=== PATIENT | female | born 1930 | race Caucasian/White ===

== ENCOUNTER 2018-01-24 10:01 | Inpatient (IN) | payer OTHER, MEDICARE ==
[~2018-01-24] VITALS: Ht 157.5 cm; Wt 80.3 kg
--- NOTE | 2018-01-24 10:10 | ED GENERAL ADULT ---
History of Present Illness General Chief Complaint: Altered Mental Status Stated Complaint: BIBA, AMS Source: patient, family Exam Limitations: patient's age, poor historian Vital Signs & Intake/Output Vital Signs & Intake/Output Vital Signs Date Time Temp Pulse Resp B/P B/P Pulse O2 O2 Flow FiO2 Mean Ox Delivery Rate 01/24 1629 96 Nasal 2.0L Cannula 01/24 1629 78 18 92/54 96 Nasal 2.0L Cannula 01/24 1550 97.0 86 18 110/60 96 Room Air Room Air 01/24 1042 97 Non 10L ReBreather 01/24 1006 100.0 99 17 105/73 96 Non 10L ReBreather Allergies Coded Allergies: Penicillins (UNKNOWN 01/24/18) Sulfa (Sulfonamide Antibiotics) (UNKNOWN 01/24/18) amoxicillin (From AUGMENTIN) (UNKNOWN 01/24/18) ciprofloxacin (From CIPRO) (UNKNOWN 01/24/18) clavulanic acid (From AUGMENTIN) (UNKNOWN 01/24/18) hydromorphone (From DILAUDID) (UNKNOWN 01/24/18) nitrofurantoin (From MACROBID) (UNKNOWN 01/24/18) Uncoded Allergies: ANESTHIA (UNKNOWN 01/24/18) Reconcile Medications Acetaminophen (Tylenol Arthritis) 650 MG TABLET.ER 1 TAB PO DAILY HIP PAIN ( Reported) Ascorbate Calcium (Vitamin C) 500 MG TABLET 1 TAB PO BID VITAMIN SUPPORT ( Reported) Aspirin (Aspirin*) 81 MG TAB.CHEW 1 TAB PO DAILY HEART HEALTH (Reported) Duloxetine HCl 60 MG CAPSULE.DR 1 CAP PO DAILY DEPRESSION (Reported) Estradiol (Estring) 7.5 MCG/24 HOUR VAG.RING 1 RING VAG Q3M PAV (Reported) Furosemide 40 MG TABLET 1 TAB PO DAILY WATER RETENTION (Reported) Gabapentin (Neurontin) 800 MG TABLET 1 TAB PO TID DIABETES (Reported) Insulin Aspart (Novolog) (Unknown Strength) VIAL (Unknown Dose) SC SEE SLIDING SCALE DIABETES (Reported) Insulin Detemir (Levemir) 100 UNIT/ML VIAL 70 UNIT SC DAILY DIABETES ( Reported) Insulin Detemir (Levemir) 100 UNIT/ML VIAL 45 UNITS SC QPM DIABETES (Reported ) Linagliptin (Tradjenta) 5 MG TABLET 1 TAB PO DAILY DIABETES (Reported) Lorazepam (Ativan) 0.5 MG TABLET 0.5 TAB PO Q8P PRN ANXIETY (Reported) Meclizine HCl 25 MG TABLET 1 TAB PO TIDPRN PRN DIZZINESS (Reported) Melatonin 3 MG TABLET 2 TAB PO QPM SLEEP HELP (Reported) Meloxicam 15 MG TABLET 1 TAB PO DAILY ARTHRITIS (Reported) Methenamine Hippurate 1 GRAM TABLET 1 TAB PO BID URINE (Reported) Metoclopramide HCl 5 MG TABLET 1 TAB PO BIDP PRN GI (Reported) Metoclopramide HCl (Reglan) 5 MG TABLET 1 TAB PO BID GI (Reported) Metoprolol Succinate 100 MG TAB.ER.24H 1 TAB PO DAILY HEART (Reported) Mirabegron (Myrbetriq) 25 MG TAB.ER.24H 1 TAB PO DAILY URINE (Reported) Mirtazapine 45 MG TABLET 1 TAB PO QPM SLEEP (Reported) Omeprazole 20 MG CAPSULE.DR 1 CAP PO BID GI (Reported) Oxybutynin Chloride (Oxybutynin Chloride ER) 10 MG TAB.ER.24 1 TAB PO DAILY BLADDER (Reported) Polyethylene Glycol 3350 (Miralax) 17 GRAM POWD.PACK 1 PAC PO DAILY GI ( Reported) dissolve in water Sennosides (Senna) 8.6 MG TABLET 2 TAB PO QPM GI (Reported) Simvastatin (Simvastatin*) 10 MG TABLET 1 TAB PO QPM CHOLESTEROL (Reported) Tramadol HCl 50 MG TABLET 0.5 TAB PO BID HIP PAIN (Reported) Trazodone HCl 150 MG TABLET 0.5 TAB PO QPM DEPRESSION (Reported) Triage Nurses Notes Reviewed? yes Onset: Abrupt Duration: day(s): Timing: recent history HPI: 01/24/18 87-year-old female presented to the emergency department for altered mental status and lethargy. According to retirement staff she has a history of UTIs presenting as altered mental status. No chest pain or shortness of breath. She also has history of diabetes mellitus. She was found to be hypoglycemic prior to arrival. Past History Travel History Traveled to [place] past 21 day No Medical History Any Pertinent Medical History? see below for history Renal: UTI Endocrine: diabetes Surgical History Surgical History: non-contributory Family History Hx Contributory? No Review of Systems Review of Systems Constitutional: Denies: fever. EENTM: Reports: no symptoms. Respiratory: Reports: no symptoms. Cardiovascular: Reports: no symptoms. GI: Reports: no symptoms. Genitourinary: Reports: see HPI. Musculoskeletal: Reports: no symptoms. Skin: Reports: no symptoms. Neurological/Psychological: Reports: confusion, weakness. Hematologic/Endocrine: Denies: bruising, bleeding. Physical Exam Physical Exam General Appearance: anxious, moderate distress Head: atraumatic, normal appearance Eyes: Bilateral: normal appearance, PERRL, EOMI. Ears, Nose, Throat: normal pharynx, normal ENT inspection Neck: normal inspection, supple Respiratory: normal breath sounds, chest non-tender, no respiratory distress Cardiovascular: tachycardic Peripheral Pulses: 4+ radial (R), 4+ radial (L) Gastrointestinal: non-tender Back: decreased range of motion Extremities: normal inspection Neurologic/Psych: awake, lethargic, nonfocal Skin: diaphoresis Core Measures ACS in differential dx? No CVA/TIA Diagnosis: No Sepsis Present: No Sepsis Focused Exam Completed? No Progress Differential Diagnoses I considered the following diagnoses in my evaluation of the patient: Plan of Care: Orders Procedure Date/time Status CBC WITHOUT DIFFERENTIAL 01/25 0600 Active BASIC ELECTROLYTES PLUS BUN&CR 01/25 0600 Active Consistent Carbohydrate 2 01/24 D Active Patient Data 01/24 1644 Active Weight 01/24 1638 Active Vital Signs 01/24 1638 Active Teach/Educate 01/24 1638 Active Pain Treatment and Response 01/24 1638 Active Nutritional Intake, Monitor 01/24 1638 Active Isolation 01/24 1638 Active Intake & Output 01/24 1638 Active Patient Care Conference 01/24 1638 Active Activity/Ambulation 01/24 1638 Active Pathway - chart 01/24 1506 Active House Staff 01/24 1506 Active Patient Data 01/24 1506 Active ED Holding Orders 01/24 1331 Active Admit to inpatient 01/24 1331 Active Vital Signs 01/24 1331 Active Code Status 01/24 1331 Active LACTIC ACID 01/24 1325 Complete Intake & Output 01/24 1112 Active Fu, Insertion/Removal/Asses 01/24 1025 Active CULTURE,URINE 01/24 1025 Active BLOOD CULTURE 01/24 1025 Active URINALYSIS 01/24 1025 Complete TROPONIN LEVEL 01/24 1025 Complete LACTIC ACID 01/24 1025 Complete COMPREHENSIVE METABOLIC PANEL 01/24 1025 Complete CBC WITHOUT DIFFERENTIAL 01/24 1025 Complete FingerStick- Glucose 01/24 1020 Active EKG 01/24 1016 Active D-DIMER 05/03 1015 Complete Lab Add-on Test 01/24 UNK Active VTE Mechanical Prophylaxis 01/24 UNK Active Current Medications Sig/Shikha Start time Last Medication Dose Stop Time Status Admin Aspirin 81 MG DAILY 01/25 900 AC (Aspirin) Duloxetine HCl 60 MG DAILY 01/25 900 AC (Cymbalta) Enoxaparin Sodium 40 MG DAILY 01/25 900 AC (Lovenox) Furosemide 40 MG DAILY 01/25 900 AC (Lasix) Insulin Detemir 35 UNITS DAILY 01/25 900 AC (Levemir) Gabapentin 800 MG TID 01/24 2100 AC (Neurontin) Insulin Detemir 20 UNITS QPM 01/24 2100 AC (Levemir) Melatonin 6 MG QPM 01/24 2100 AC (Melatonin) Metoclopramide HCl 5 MG BID 01/24 2100 AC (Reglan) Atorvastatin Calcium 5 MG 1700 01/24 1700 AC 01/24 (Lipitor) 1826 Lorazepam 0.25 MG Q8P PRN 01/24 1600 AC (Ativan) 01/31 1559 Meropenem 1 GM Q12H 01/24 1600 AC 01/24 (MEROPENEM) 1555 Acetaminophen 650 MG Q6P PRN 01/24 1515 AC (Tylenol) Acetaminophen 1,000 MG Q6P PRN 01/24 1515 AC (Ofirmev) Sodium Chloride 1,000 ML Q10H 01/24 1515 AC 01/24 (Normal Saline 0.9%) 1730 Laboratory Tests 01/24/18 1336: Lactic Acid 1.0 01/24/18 1027: Urinalysis LIGHT H, Urine Color YEL, Urine Clarity CLDY H, Urine pH 6.0, Ur Specific Blair 1.020, Urine Protein 100 H, Urine Ketones NEG, Urine Nitrite NEG, Urine Bilirubin NEG, Urine Urobilinogen 0.2, Ur Leukocyte Esterase LARGE H , Ur Microscopic SEDIMENT EXAMINED, Urine RBC FEW H, Urine WBC PACKD H, Ur Epithelial Cells FEW, Urine Bacteria RARE H, Urine Hemoglobin MOD H, Urine Glucose NEG 01/24/18 1015: Anion Gap 10, Estimated GFR 52 L, BUN/Creatinine Ratio 36.0 H, Glucose 164 H, Lactic Acid 1.9, Calcium 8.5, Total Bilirubin 0.3, AST 25, ALT 26, Alkaline Phosphatase 108, Troponin I < 0.01, Total Protein 6.1 L, Albumin 3.2 L, Globulin 2.9, Albumin/Globulin Ratio 1.1, D-Dimer High Sensitivty 644 H, CBC w Diff NO MAN DIFF REQ, RBC 4.18 L, MCV 76.0 L, MCH 24.3 L, MCHC 31.9 L, RDW 24.5 H, MPV 9.2, Gran % 80.8 H, Lymphocytes % 9.6 L, Monocytes % 9.0, Eosinophils % 0.3, Basophils % 0.3, Absolute Granulocytes 8.7 H, Absolute Lymphocytes 1.0 L, Absolute Monocytes 1.0 H, Absolute Eosinophils 0, Absolute Basophils 0 Microbiology 01/24 1103 BLOOD: Blood Culture - RECD 01/24 1036 BLOOD: Blood Culture - RES 01/24 1027 URINE ROUT: Urine Culture - RECD Initial ED EKG: normal axis (EKG), nonspecific ST T wave chg, sinus tachycardia Departure Departure Disposition: STILL A PATIENT Condition: Stable Clinical Impression Primary Impression: UTI (urinary tract infection) Secondary Impressions: Altered mental status Referrals: Fara Sears MD (PCP/Family) Departure Forms: Customer Survey General Discharge Information Admission Note Spoke With: Kael HAMPTON,Frieda Documentation of Exam: Documentation of any treatments & extenuating circumstances including Concerns Regarding Discharge (functional status, medication knowledge or non-compliance, living conditions, etc.) that warrant an admission rather than observation: [The patient needs admission for IV antibiotics, IV fluids, neurology evaluations every 6 hours, follow the blood cultures, consider infectious disease consultation] The patient had a history of penicillin allergy. The allergy was a rash. She was treated with meropenem. 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 Critical Care Note Critical Care Note Critical Care Time: 30-74 min
[2018-01-24] MEDS ORDERED: ATIVAN0.5 M1 PO (10:35)
[2018-01-24] MEDS ORDERED: LEVEMIR100 UNIT/1 SC ×2 (10:36→10:42)
[2018-01-24] MEDS ORDERED: METOCLOPRAMIDE H5 MG PO (10:36)
[2018-01-24] MEDS ORDERED: MELOXICAM15 M1 PO (10:43)
[2018-01-24] MEDS ORDERED: TYLENOL ARTHRI650 M1 PO (10:43)
[2018-01-24 10:45] LABS: ABSOLUTE BASOPHIL COUNT 0 /CUMM (0.0-0.2); ABSOLUTE EOSINOPHIL COUNT 0 /CUMM (0.0-0.7); ABSOLUTE GRANULOCYTE CT 8.7 /CUMM (1.4-6.5); BASOPHIL % 0.3 % (0.0-2.0); EOSINOPHIL % 0.3 % (0-5); GRANULOCYTE % 80.8 % (42.2-75.2); HEMATOCRIT 31.8 % (37-47); MEAN CORPUSCULAR HGB 24.3 PG (27.0-31.0); MEAN CORPUSCULAR HGB CONC 31.9 G/DL (33.0-37.0); MEAN PLATELET VOLUME 9.2 FL (7.4-10.4); PLATELET COUNT 189 /CUMM (130-400); RBC DISTRIBUTION WIDTH 24.5 % (11.5-14.5); RED BLOOD CELL CT 4.18 /CUMM (4.20-5.40); WHITE BLOOD CELL COUNT 10.8 /CUMM (4.8-10.8)
[2018-01-24] MEDS ORDERED: TRAMADOL HCL50 M1 PO (10:45)
[2018-01-24] MEDS ORDERED: REGLAN5 M1 PO (10:46)
[2018-01-24] MEDS ORDERED: ESTRING1 EACH VAG (10:48)
[2018-01-24] MEDS ORDERED: OMEPRAZOLE20 M2 PO (10:49)
[2018-01-24] MEDS ORDERED: TRAZODONE HCL150 M1 PO (10:50)
[2018-01-24] MEDS ORDERED: MECLIZINE HCL25 MG PO (10:50)
[2018-01-24] MEDS ORDERED: OXYBUTYNIN CHLO10 M1 PO (10:51)
[2018-01-24] MEDS ORDERED: METHENAMINE HIPP1 G1 PO (10:52)
[2018-01-24] MEDS ORDERED: VITAMIN C500 M6 PO (10:53)
[2018-01-24] MEDS ORDERED: MIRTAZAPINE45 M1 PO (10:54)
[2018-01-24] MEDS ORDERED: SENNA8.6 M3 PO (10:54)
[2018-01-24] MEDS ORDERED: MELATONIN3 M4 PO (10:55)
[2018-01-24] MEDS ORDERED: NOVOLOG100 UNIT/2 SC (10:56)
[2018-01-24] MEDS ORDERED: MIRALAX17 G1 PO (10:56)
[2018-01-24] MEDS ORDERED: DULOXETINE HCL60 MG PO (10:57)
[2018-01-24] MEDS ORDERED: SIMVASTATIN10 M1 PO (10:57)
[2018-01-24] MEDS ORDERED: TRADJENTA5 M1 PO (10:58)
[2018-01-24] MEDS ORDERED: ASPIRIN81 M4 PO (10:58)
[2018-01-24] MEDS ORDERED: NEURONTIN800 M2 PO (10:59)
[2018-01-24] MEDS ORDERED: MYRBETRIQ25 M1 PO (10:59)
[2018-01-24] MEDS ORDERED: METOPROLOL SUC100 M2 PO (10:59)
[2018-01-24] MEDS ORDERED: FUROSEMIDE40 M1 PO (11:00)
--- NOTE | 2018-01-24 11:38 | RADIOLOGY REPORT ---
EXAMINATION: XR PORTABLE CHEST CLINICAL INFORMATION: Fever with question of pneumonia. COMPARISON: None TECHNIQUE: Portable frontal view of the chest was obtained. FINDINGS: The heart and pulmonary vessels appear normal. No infiltrates, effusions or lung masses are seen. IMPRESSION: No acute intrathoracic disease.
--- NOTE | 2018-01-24 12:28 | CT SCAN REPORT ---
EXAMINATION: CT HEAD WITHOUT CONTRAST CLINICAL INFORMATION: Altered mental status. Assess for CVA. COMPARISON: CT scan of the head 06/27/2012. TECHNIQUE: Contiguous axial imaging was performed from the skull base to vertex without intravenous administration of contrast. DLP: 613.14 mGy-cm FINDINGS: There is no evidence of acute intracranial hemorrhage or territorial infarction. No abnormal mass effect or midline shift is seen. Arvizu to white matter differentiation is well preserved. No extra-axial fluid collections are identified. The ventricles and sulci are commensurately prominent consistent with mildly progressive diffuse volume loss. There is also been slight interval increase in the patchy areas of low-attenuation the periventricular and subcortical white matter, consistent with chronic microvascular any changes. There are atheromatous calcifications of the cavernous internal carotid arteries bilaterally. A calcification in the region of the left proximal middle cerebral artery is unchanged. The soft tissues are unremarkable. There is hyperostosis frontalis interna. There are no acute osseous findings. The visualized mastoid air cells and paranasal sinuses are well-aerated. IMPRESSION: 1. There are no acute bleeds or territorial infarcts. 2. There are progressive changes from diffuse volume loss and chronic microvascular ischemic disease.
--- NOTE | 2018-01-24 14:08 | History & Physical ---
Mayra Messina MD,[facility] 01/24/18 1407: General Information and HPI MD Statement: I have seen and personally examined RAMONITA HARP and documented this H&P. The patient is a 87 year old F who presented with a patient stated chief complaint of [altered of the status]. 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 We contacted the nursing facility and family were also present at the bedside to complete the history. this morning patient was found to be minimally responsive and confused, ambulance was called and patient was transferred to ED. Patient has extensive past medical history with several admissions to [facility]. Patient also had several UTIs in the past, the most recent one was in November with candidia and Escherichia coli (treated with fluconazole and? Doxey) and and as it episode of UTI in October with ESBL (treated with gentamicin). Patient had altered mental status in the a.m. but was improved at the time of interview. Patient was found to be hypoglycemic (glucose 36), according to family she got her insulin today but she had no meals. Allergies/Medications Allergies: Coded Allergies: Penicillins (UNKNOWN 01/24/18) Sulfa (Sulfonamide Antibiotics) (UNKNOWN 01/24/18) amoxicillin (From AUGMENTIN) (UNKNOWN 01/24/18) ciprofloxacin (From CIPRO) (UNKNOWN 01/24/18) clavulanic acid (From AUGMENTIN) (UNKNOWN 01/24/18) hydromorphone (From DILAUDID) (UNKNOWN 01/24/18) nitrofurantoin (From MACROBID) (UNKNOWN 01/24/18) Uncoded Allergies: ANESTHIA (UNKNOWN 01/24/18) Home Med list Acetaminophen (Tylenol Arthritis) 650 MG TABLET.ER 1 TAB PO DAILY HIP PAIN ( Reported) Ascorbate Calcium (Vitamin C) 500 MG TABLET 1 TAB PO BID VITAMIN SUPPORT ( Reported) Aspirin (Aspirin*) 81 MG TAB.CHEW 1 TAB PO DAILY HEART HEALTH (Reported) Duloxetine HCl 60 MG CAPSULE. 1 CAP PO DAILY DEPRESSION (Reported) Estradiol (Estring) 7.5 MCG/24 HOUR VAG.RING 1 RING VAG Q3M PAV (Reported) Furosemide 40 MG TABLET 1 TAB PO DAILY WATER RETENTION (Reported) Gabapentin (Neurontin) 800 MG TABLET 1 TAB PO TID DIABETES (Reported) Insulin Aspart (Novolog) (Unknown Strength) VIAL (Unknown Dose) SC SEE SLIDING SCALE DIABETES (Reported) Insulin Detemir (Levemir) 100 UNIT/ML VIAL 70 UNIT SC DAILY DIABETES ( Reported) Insulin Detemir (Levemir) 100 UNIT/ML VIAL 45 UNITS SC QPM DIABETES (Reported ) Linagliptin (Tradjenta) 5 MG TABLET 1 TAB PO DAILY DIABETES (Reported) Lorazepam (Ativan) 0.5 MG TABLET 0.5 TAB PO Q8P PRN ANXIETY (Reported) Meclizine HCl 25 MG TABLET 1 TAB PO TIDPRN PRN DIZZINESS (Reported) Melatonin 3 MG TABLET 2 TAB PO QPM SLEEP HELP (Reported) Meloxicam 15 MG TABLET 1 TAB PO DAILY ARTHRITIS (Reported) Methenamine Hippurate 1 GRAM TABLET 1 TAB PO BID URINE (Reported) Metoclopramide HCl 5 MG TABLET 1 TAB PO BIDP PRN GI (Reported) Metoclopramide HCl (Reglan) 5 MG TABLET 1 TAB PO BID GI (Reported) Metoprolol Succinate 100 MG TAB.ER.24H 1 TAB PO DAILY HEART (Reported) Mirabegron (Myrbetriq) 25 MG TAB.ER.24H 1 TAB PO DAILY URINE (Reported) Mirtazapine 45 MG TABLET 1 TAB PO QPM SLEEP (Reported) Omeprazole 20 MG CAPSULE.DR 1 CAP PO BID GI (Reported) Oxybutynin Chloride (Oxybutynin Chloride ER) 10 MG TAB.ER.24 1 TAB PO DAILY BLADDER (Reported) Polyethylene Glycol 3350 (Miralax) 17 GRAM POWD.PACK 1 PAC PO DAILY GI ( Reported) dissolve in water Sennosides (Senna) 8.6 MG TABLET 2 TAB PO QPM GI (Reported) Simvastatin (Simvastatin*) 10 MG TABLET 1 TAB PO QPM CHOLESTEROL (Reported) Tramadol HCl 50 MG TABLET 0.5 TAB PO BID HIP PAIN (Reported) Trazodone HCl 150 MG TABLET 0.5 TAB PO QPM DEPRESSION (Reported) Past History Travel History Traveled to [place] past 21 day No Medical History Neurological: DIABETIC NEUROPATHY EENT: DYSPHAGIA Cardiovascular: hypertension, hyperlipidemia, PVD, GENERALIZED EDEMA Respiratory: NONE Gastrointestinal: constipation, GERD, irritable bowel syndrome Hepatic: NONE Renal: UTI'S INCONTINENCE Musculoskeletal: rheumatoid arthritis, PSORIASIS,MUSCLE WEAKNESS Psychiatric: anxiety, depression, insomnia Endocrine: diabetes Blood Disorders: IRON DEFICIENCY ANEMIA VIT D DEFICIENCY Surgical History Surgical History: unobtainable (requested for records), masectomy Past Family/Social History Psychosocial History ETOH Use: denies use Illicit Drug Use: denies illicit drug use Review of Systems Review of Systems Constitutional: Reports: see HPI. Exam & Diagnostic Data Last 24 Hrs of Vital Signs/I&O Vital Signs Date Time Temp Pulse Resp B/P B/P Pulse O2 O2 Flow FiO2 Mean Ox Delivery Rate 01/24 1550 97.0 86 18 110/60 96 Room Air Room Air 01/24 1042 97 Non 10L ReBreather 01/24 1006 100.0 99 17 105/73 96 Non 10L ReBreather Intake & Output 01/24 1600 01/24 0800 01/24 0000 Intake Total 1250 Output Total Balance 1250 Intake, IV 1250 Patient 162 lb Weight Weight Reported by Patient Measurement Method Physical Exam General Appearance Alert, Oriented X3, Cooperative, No Acute Distress, ill looking Skin Temp/Moisture Exam: Warm/Dry Sepsis Skin Exam (color): Normal for Ethnicity, no signs at the time of interview HEENT Atraumatic, EOMI Neck No JVD Cardiovascular Normal S1, Normal S2 Lungs Normal Air Movement Abdomen Soft, mild suprapubic tenderness Extremities No Edema Last 24 Hrs of Labs/Mateo: Laboratory Tests 01/24/18 1336: Lactic Acid 1.0 01/24/18 1027: Urinalysis LIGHT H, Urine Color YEL, Urine Clarity CLDY H, Urine pH 6.0, Ur Specific [place] 1.020, Urine Protein 100 H, Urine Ketones NEG, Urine Nitrite NEG, Urine Bilirubin NEG, Urine Urobilinogen 0.2, Ur Leukocyte Esterase LARGE H , Ur Microscopic SEDIMENT EXAMINED, Urine RBC FEW H, Urine WBC PACKD H, Ur Epithelial Cells FEW, Urine Bacteria RARE H, Urine Hemoglobin MOD H, Urine Glucose NEG 01/24/18 1015: Anion Gap 10, Estimated GFR 52 L, BUN/Creatinine Ratio 36.0 H, Glucose 164 H, Lactic Acid 1.9, Calcium 8.5, Total Bilirubin 0.3, AST 25, ALT 26, Alkaline Phosphatase 108, Troponin I < 0.01, Total Protein 6.1 L, Albumin 3.2 L, Globulin 2.9, Albumin/Globulin Ratio 1.1, CBC w Diff NO MAN DIFF REQ, RBC 4.18 L, MCV 76.0 L, MCH 24.3 L, MCHC 31.9 L, RDW 24.5 H, MPV 9.2, Gran % 80.8 H, Lymphocytes % 9.6 L, Monocytes % 9.0, Eosinophils % 0.3, Basophils % 0.3, Absolute Granulocytes 8.7 H, Absolute Lymphocytes 1.0 L, Absolute Monocytes 1.0 H, Absolute Eosinophils 0, Absolute Basophils 0 Microbiology 01/24 1103 BLOOD: Blood Culture - RECD 01/24 1036 BLOOD: Blood Culture - RES 01/24 1027 URINE ROUT: Urine Culture - RECD Assessment/Plan Assessment: Patient is 87 y F with presented to ED with altered mental status and chills PMHx of intersitial cystitis, Type II DM, with diabetic mononeuropathy, HTN, Peripherial vascular disease, generalized anxiety disorder, gerneralized edema, hyperlipidemia, iron deficiency anemia, urge incontinence, IBS with diarrhea, major depressive disorder, anxiety disorder, 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 Doxey) and ESBL (treated with gentamicin) VS, Ph Ex at admission: Tmax 100, BP 105/73, saturating with 2l o2 supplement Labs at admission: Hgb 10.1, MCV 76, WBC 10.8, Gran 80%, creatinine 1, BUN 36, UA, cloudy, leukocyte esterase large, RBC few, WBC packed, bacteria rare Imagings at admission: CXR: No acute intrathoracic disease. Head CT: 1. There are no acute bleeds or territorial infarcts. 2. There are progressive changes from diffuse volume loss and chronic microvascular ischemic disease. Patient was admitted to telemetry floor for management of following conditions: Altered mental status Secondary to UTI (concern of SIRS and Sepsis)/ metabolic due to hypo-glycemia Patient's mental condition improved according to family. -Admit patient to general medicine floor -Continue to check vital signs, neurochecks -O2 supplements as needed -Continue IV hydration -Continue IV meropenem considering ESBL -Monitor blood sugars, reduce the dose of basal insulin to half -hold BP medication, we will monitor BP Chronic medical conditions -We will continue home medication DVT prophylaxis, mechanical and pharmacological Diabetic diet FC As Ranked By This Provider Problem List: 1. UTI (urinary tract infection) 2. Altered mental status 3. Sepsis Core Measures/Misc (06/10) Acute Coronary Syndrome ACS Diagnosis: No Congestive Heart Failure Congestive Heart Failure Diagnosis No Cerebrovascular Accident CVA/TIA Diagnosis: No VTE (View Protocol) VTE Risk Factors Age>40 No Mechanical VTE Prophylaxis d/t N/A MechProphylax Ordered No VTE Pharm Prophylaxis d/t NA PharmProphylax ordered Sepsis (View protocol) Sepsis Present: No Valery Jacobson MD 01/24/18 1521: Attending MD Review Statement Attending Statement Attending MD Statement: examined this patient, discuss w/resident/PA/SENIOR MEDICAL TRANSCRIPTIONIST, agreed w/resident/PA/SENIOR MEDICAL TRANSCRIPTIONIST, discussed with family, reviewed EMR data (avail), discussed with nursing, amended to note Attending Assessment/Plan: Patient is an 87-year-old female with history of insulin-dependent diabetes mellitus, interstitial cystitis, recurrent urinary tract infections. She is a long-term resident of the intermediate facility was sent to the emergency room for evaluation today. She frequently develops urinary tract infections that are being managed at the intermediate facility at times with intravenous antibiotic therapy. Please initially admitted to [facility]. In the past she has grown ESBL E. coli. At the intermediate today she was noted to be febrile. She also had poor appetite. She received her morning dose of insulin and admits to poor oral intake. She was found later with altered mentation. He was hypoglycemic with glucose in the 30s. She was brought by EMS to the ER for evaluation. She was given glucagon by the EMS. Mentation improved by the time she arrived emergency room. She had a temperature 100.0. She was tachycardic. Daughter reports that at the intermediate patient was hypoxic with saturations in the 80s. She was found to have abnormal urinalysis and was started on IV meropenem and was referred to the inpatient medical service for further management. Examination she is alert and oriented 3. Conversant appropriately. No events present at the bedside. She is not in any respiratory distress. Denies any respiratory symptoms at present. Heart sounds are regular. Lungs are clear to auscultation bilaterally. Abdomen soft mild suprapubic tenderness. No rebound or guarding. No peripheral edema. Problems: 1. Complicated urinary tract infection with concern for sepsis on account of her fever, tachycardia and borderline blood pressure. 2. Hypoglycemia 3. Prerenal azotemia 4. Chronic anemia Plan: -Admit to inpatient medical service. -Continue antibiotic therapy with IV meropenem. -Obtain ID consultation. Obtain records from [facility]. -Follow blood and urine cultures. -Resume home insulin regimen and have the dose. Sliding scale insulin coverage. Once appetite improves increase her insulin regimen back to the home dose. -Wean off oxygen as tolerated. Check d-dimer. -DVT prophylaxis with heparin subcu. Juliana Madsen 01/24/18 1535: Resident Review Statement Resident Statement: examined this patient, discussed with restaurant management internship, agreed with restaurant management internship Other Findings: Patient is 87-year-old female with past medical history significant for recurrent urinary tract infections(ESBL in the past), chronic interstitial cystitis, insulin-dependent diabetes mellitus, negative with neuropathy, hypertension and hyperlipidemia, GERD, hiatal hernia, presented from [facility] further evaluation of altered mental status. Pt has been in the facility for more than 5-6 years, has been treated multiple times with IV and oral for recurrent urinary tract infections. Last infection was in November /December when she was treated with doxycycline and fluconazole. For the last 1 week patient patient started feeling as if she was having another urinary tract infection. Had dysuria with bladder pressure and she was put on pyridium. At the intermediate today patient was found to be febrile to 101, she was minimally responsive, blood sugars were low in the 30s, desaturated and 80s and was sent to the ER for further evaluation.On her way to the hospital patient was given glucagon. In the ER patient he was still lethargi,tachycardic and febrile to 100. Urinalysis was positive for large leukocyte esterase. She was started on broad- spectrum IV meropenem(in the context of previous ESBL infections) Vitals in the ED Stable except for borderline low blood pressure General Appearance: Alert, No Acute Distress Skin: Grossly normal HEENT: PEERLA Neck: Supple, No JVD Cardiovascular: Regular Rate, Normal S1, Normal S2, No Murmurs Lungs: Clear to Auscultation, Normal Air Movement Abdomen: Normal Bowel Sounds, Soft, No Tenderness Neurological: Grossly intact Extremities: No Clubbing, No Cyanosis, No Edema Vascular: Normal Pulses Pertinent labs on admission WBC count with evidence of gross granulocytosis, normal lactic acid levels Normal chest x-ray and CT head EKG showing sinus tachycardia with incomplete right bundle branch block Assessment Altered mental status(metabolic encephalopathy in the setting of severe complicated urinary tract infection)- with a concern of sepsis, history of ESBL Hypoglycemia History of interstitial cystitis History of hypertension and hyperlipidemia plan: Altered mental status(metabolic encephalopathy in the setting of severe complicated urinary tract infection) with a concern of sepsis, history of ESBL * Admit the patient to general floor * Continue with with IV meropenem * Awaiting cultures and sensitivities. * Continue with IV hydration * Monitor vitals every 4 hours * Watch for any hemodynamic instability. Hypoglycemia: * Monitor blood sugar levels. * Will continue down basal Levemir to half (20 of Levemir at bedtime and 35 of Levemir in the morning). * Hold oral hypoglycemics. History of interstitial cystitis * Continue mirbegon. History of hypertension and hyperlipidemia * Hold antihypertensives for now due to concerns of underlying sepsis * Consider resuming the medications tomorrow once the blood pressure is stable DVT prophylaxis with subcutaneous Lovenox Mild pain controlled with Tylenol Patient is full code
[2018-01-24 16:29] VITALS: BP 92/54
--- NOTE | 2018-01-24 17:39 | Cons- Infect Disease ---
General Information and HPI Consulting Request Date of Consult: 01/24/18 Requested By: Valery Jacobson MD Reason for Consult: Rule out sepsis of urologic origin Source of Information: patient, family History of Present Illness: This is an 87-year-old woman, alf resident, with a history of diabetes, with a secondary neuropathy, hypertension, peripheral vascular disease, iron deficiency anemia, rheumatoid arthritis, irritable bowel syndrome, depression, anxiety, GERD, psoriasis, interstitial cystitis, treated for multiple urinary tract infections in the past, with ESBL producing E. coli and Kelsy isolated from her recent urine cultures, admitted today after she was sent to the emergency room because of a fever to 101, hypoglycemia (with a glucose of 34 en route to the hospital) and confusion, several days of lethargy and more chronic complaints of suprapubic pressure and dysuria. On admission she was febrile to 100, with a blood pressure of 105/73. Laboratory data revealed a white blood cell count of 11,000, BUN/creatinine 36 and 1.0, with normal liver enzymes. Urinalysis few RBC/packed WBCs. Chest x-ray was negative. CT of the head revealed progressive changes from diffuse volume loss and chronic microvascular ischemic disease. She was begun on Meropenem and admitted to the floor. Allergies/Medications Allergies: Coded Allergies: Penicillins (UNKNOWN 01/24/18) Sulfa (Sulfonamide Antibiotics) (UNKNOWN 01/24/18) amoxicillin (From AUGMENTIN) (UNKNOWN 01/24/18) ciprofloxacin (From CIPRO) (UNKNOWN 01/24/18) clavulanic acid (From AUGMENTIN) (UNKNOWN 01/24/18) hydromorphone (From DILAUDID) (UNKNOWN 01/24/18) nitrofurantoin (From MACROBID) (UNKNOWN 01/24/18) Uncoded Allergies: ANESTHIA (UNKNOWN 01/24/18) Home Med List: Acetaminophen (Tylenol Arthritis) 650 MG TABLET.ER 1 TAB PO DAILY HIP PAIN ( Reported) Ascorbate Calcium (Vitamin C) 500 MG TABLET 1 TAB PO BID VITAMIN SUPPORT ( Reported) Aspirin (Aspirin*) 81 MG TAB.CHEW 1 TAB PO DAILY HEART HEALTH (Reported) Duloxetine HCl 60 MG CAPSULE.DR 1 CAP PO DAILY DEPRESSION (Reported) Estradiol (Estring) 7.5 MCG/24 HOUR VAG.RING 1 RING VAG Q3M PAV (Reported) Furosemide 40 MG TABLET 1 TAB PO DAILY WATER RETENTION (Reported) Gabapentin (Neurontin) 800 MG TABLET 1 TAB PO TID DIABETES (Reported) Insulin Aspart (Novolog) (Unknown Strength) VIAL (Unknown Dose) SC SEE SLIDING SCALE DIABETES (Reported) Insulin Detemir (Levemir) 100 UNIT/ML VIAL 70 UNIT SC DAILY DIABETES ( Reported) Insulin Detemir (Levemir) 100 UNIT/ML VIAL 45 UNITS SC QPM DIABETES (Reported ) Linagliptin (Tradjenta) 5 MG TABLET 1 TAB PO DAILY DIABETES (Reported) Lorazepam (Ativan) 0.5 MG TABLET 0.5 TAB PO Q8P PRN ANXIETY (Reported) Meclizine HCl 25 MG TABLET 1 TAB PO TIDPRN PRN DIZZINESS (Reported) Melatonin 3 MG TABLET 2 TAB PO QPM SLEEP HELP (Reported) Meloxicam 15 MG TABLET 1 TAB PO DAILY ARTHRITIS (Reported) Methenamine Hippurate 1 GRAM TABLET 1 TAB PO BID URINE (Reported) Metoclopramide HCl 5 MG TABLET 1 TAB PO BIDP PRN GI (Reported) Metoclopramide HCl (Reglan) 5 MG TABLET 1 TAB PO BID GI (Reported) Metoprolol Succinate 100 MG TAB.ER.24H 1 TAB PO DAILY HEART (Reported) Mirabegron (Myrbetriq) 25 MG TAB.ER.24H 1 TAB PO DAILY URINE (Reported) Mirtazapine 45 MG TABLET 1 TAB PO QPM SLEEP (Reported) Omeprazole 20 MG CAPSULE.DR 1 CAP PO BID GI (Reported) Oxybutynin Chloride (Oxybutynin Chloride ER) 10 MG TAB.ER.24 1 TAB PO DAILY BLADDER (Reported) Polyethylene Glycol 3350 (Miralax) 17 GRAM POWD.PACK 1 PAC PO DAILY GI ( Reported) dissolve in water Sennosides (Senna) 8.6 MG TABLET 2 TAB PO QPM GI (Reported) Simvastatin (Simvastatin*) 10 MG TABLET 1 TAB PO QPM CHOLESTEROL (Reported) Tramadol HCl 50 MG TABLET 0.5 TAB PO BID HIP PAIN (Reported) Trazodone HCl 150 MG TABLET 0.5 TAB PO QPM DEPRESSION (Reported) Past History Travel History Traveled to [place] past 21 day No Medical History Blood Transfusion Hx: No Neurological: DIABETIC NEUROPATHY Cardiovascular: hypertension, hyperlipidemia, PVD, GENERALIZED EDEMA Respiratory: NONE Gastrointestinal: constipation, GERD, hiatal hernia, irritable bowel syndrome Hepatic: FATTY LIVER-BIOPSIES Renal: urinary incontinence, UTI'S INTERSTITIAL CYSTITIS Musculoskeletal: rheumatoid arthritis Psychiatric: anxiety, depression, insomnia Endocrine: diabetes Blood Disorders: IRON DEFICIENCY ANEMIA VIT D DEFICIENCY Cancer(s): breast cancer REPORT PROGRAMMER/Reproductive: uterine/bladder prolapse Other Medical Hx: Psoriasis Surgical History Surgical History: hysterectomy, knee replacement, LUMPECTOMY RT Psychosocial History Where Do You Live? [facility] Smoking Status: Never Smoked ETOH Use: denies use Illicit Drug Use: denies illicit drug use Review of Systems Review of Systems All Other Systems: Reviewed and Negative Exam & Diagnostic Data Last 24 Hrs of Vital Signs/I&O Vital Signs Date Time Temp Pulse Resp B/P B/P Pulse O2 O2 Flow FiO2 Mean Ox Delivery Rate 01/24 1629 96 Nasal 2.0L Cannula 01/24 1629 78 18 92/54 96 Nasal 2.0L Cannula 01/24 1550 97.0 86 18 110/60 96 Room Air Room Air 01/24 1042 97 Non 10L ReBreather 01/24 1006 100.0 99 17 105/73 96 Non 10L ReBreather Intake & Output 01/24 1600 01/24 0800 01/24 0000 Intake Total 1250 Output Total Balance 1250 Intake, IV 1250 Patient 162 lb Weight Weight Reported by Patient Measurement Method Physical Exam Other Physical Findings: She is lethargic but arousable and responsive in no acute distress. T-max 100. Skin reveals no rash. HEENT exam is negative. Neck is supple with no adenopathy. Lungs are clear. Heart regular rhythm with a 1/6 systolic ejection murmur. Abdomen is soft, nontender with positive bowel sounds. Back left CVA tenderness. Extremities trace edema both lower extremities. Neuro is without focality. Fu catheter is in place. Last 24 Hours of Lab Results: Laboratory Tests 01/24 01/24 1336 1027 Chemistry Lactic Acid (0.7 - 2.1 mmol/L) 1.0 Urines Urinalysis LIGHT H Urine Color (YEL,AMB,STR) YEL Urine Clarity (CLEAR) CLDY H Urine pH (5.0 - 8.0) 6.0 Ur Specific [place] (1.001 - 1.035) 1.020 Urine Protein (NEG,<30 MG/DL) 100 H Urine Ketones (NEG) NEG Urine Nitrite (NEG) NEG Urine Bilirubin (NEG) NEG Urine Urobilinogen (0.1 - 1.0 EU/dl) 0.2 Ur Leukocyte Esterase (NEG) LARGE H Ur Microscopic SEDIMENT EXAMINED Urine RBC (0 - 5 /HPF) FEW H Urine WBC (0 - 2 /HPF) PACKD H Ur Epithelial Cells (NONE,FEW) FEW Urine Bacteria (NEG/NONE) RARE H Urine Hemoglobin (NEG) MOD H Urine Glucose (N MG/DL) NEG 01/24 1015 Chemistry Sodium (137 - 145 mmol/L) 140 Potassium (3.5 - 5.1 mmol/L) 4.2 Chloride (98 - 107 mmol/L) 105 Carbon Dioxide (22 - 30 mmol/L) 25 Anion Gap (5 - 16) 10 BUN (7 - 17 mg/dL) 36 H Creatinine (0.5 - 1.0 mg/dL) 1.0 Estimated GFR (>60 ml/min) 52 L BUN/Creatinine Ratio (7 - 25 %) 36.0 H Glucose (65 - 99 mg/dL) 164 H Lactic Acid (0.7 - 2.1 mmol/L) 1.9 Calcium (8.4 - 10.2 mg/dL) 8.5 Total Bilirubin (0.2 - 1.3 mg/dL) 0.3 AST (14 - 36 U/L) 25 ALT (9 - 52 U/L) 26 Alkaline Phosphatase (<127 U/L) 108 Troponin I (< 0.11 ng/ml) < 0.01 Total Protein (6.3 - 8.2 g/dL) 6.1 L Albumin (3.5 - 5.0 g/dL) 3.2 L Globulin (1.9 - 4.2 gm/dL) 2.9 Albumin/Globulin Ratio (1.1 - 2.2 %) 1.1 Coagulation D-Dimer High Sensitivty (0 - 243 ng/ml) 644 H Hematology CBC w Diff NO MAN DIFF REQ WBC (4.8 - 10.8 /CUMM) 10.8 RBC (4.20 - 5.40 /CUMM) 4.18 L Hgb (12.0 - 16.0 G/DL) 10.1 L Hct (37 - 47 %) 31.8 L MCV (81.0 - 99.0 FL) 76.0 L MCH (27.0 - 31.0 PG) 24.3 L MCHC (33.0 - 37.0 G/DL) 31.9 L RDW (11.5 - 14.5 %) 24.5 H Plt Count (130 - 400 /CUMM) 189 MPV (7.4 - 10.4 FL) 9.2 Gran % (42.2 - 75.2 %) 80.8 H Lymphocytes % (20.5 - 51.1 %) 9.6 L Monocytes % (1.7 - 9.3 %) 9.0 Eosinophils % (0 - 5 %) 0.3 Basophils % (0.0 - 2.0 %) 0.3 Absolute Granulocytes (1.4 - 6.5 /CUMM) 8.7 H Absolute Lymphocytes (1.2 - 3.4 /CUMM) 1.0 L Absolute Monocytes (0.10 - 0.60 /CUMM) 1.0 H Absolute Eosinophils (0.0 - 0.7 /CUMM) 0 Absolute Basophils (0.0 - 0.2 /CUMM) 0 Last 24 Hours of Mateo Results: Blood cultures January 24 pending Urine culture January 24 pending Diagnostic Data Recent Imaging Findings: Chest x-ray negative. CT of the head revealed progressive changes from diffuse volume loss and chronic microvascular ischemic disease. Assessment/Plan Assessment/Plan Impression: This is an 87-year-old woman, alf resident, with a history of interstitial cystitis, treated for multiple urinary tract infections in the past , with ESBL producing E. coli and Kelsy isolated from her recent urine cultures, admitted today because of a fever to 101, hypoglycemia and confusion, several days of lethargy and more chronic complaints of suprapubic pressure and dysuria, found to have a low-grade fever, borderline hypotension, a mild leukocytosis and pyuria. Her clinical picture is consistent with a urinary tract infection, with a low- grade fever, mild leukocytosis and left flank pain suggesting pyelonephritis. Given her history of ESBL producing E. coli and allergy to penicillin, which manifested as a diffuse rash approximately 1 year prior to admission, antibiotic options are limited. Meropenem was recommended to the emergency room, and she has received 1 dose already without incident; therefore this can be continued pending her recent cultures. She does have a history of interstitial cystitis, which may manifest as urinary symptoms; therefore it can be difficult to distinguish this from an infection and Urology evaluation and further imaging may be of help. Suggestion: 1. Contact isolation for history of ESBL producing E. coli 2. Follow-up recent cultures 3. CT of the abdomen and pelvis 4. Consider Urology evaluation 5. Remove Fu catheter as soon as possible 6. Continue Meropenem 1 g IV every 12 hours pending above Consult Acknowledgment - Thank you for your consult request.
--- NOTE | 2018-01-24 20:36 | CT SCAN REPORT ---
EXAMINATION: CT ABDOMEN AND PELVIS WITHOUT CONTRAST CLINICAL INFORMATION: Fever, possibly urine. Concern for sepsis. COMPARISON: None. TECHNIQUE: Multidetector volumetric imaging was performed from the lung bases through the pubic symphysis. Sagittal and coronal reformatted images were obtained on the technologist workstation. Total exam dose-length product 403 mGy-cm FINDINGS: The lack of intravenous contrast limits evaluation of the solid visceral organs including the liver, spleen, pancreas, and kidneys. LUNG BASES: The visualized lung bases are unremarkable. LIVER, GALLBLADDER, AND BILIARY TREE: Limited non-contrast evaluation is normal. No gross focal hepatic lesion. Normal liver size and contour. No gross biliary ductal dilation. There are hyperdense gallstones layering in the gallbladder. No biliary ductal dilatation. No pericholecystic fluid or gallbladder wall thickening. PANCREAS: The pancreas is atrophic. SPLEEN: Limited non-contrast evaluation is normal. ADRENAL GLANDS: Normal; no adrenal mass. KIDNEYS AND URETERS: Limited non-contrast evaluation is normal. No hydronephrosis, hydroureter, or calculi seen. GASTROINTESTINAL TRACT: Moderate hiatal hernia. Small bowel is nondilated. The appendix is not seen but there are no right lower quadrant inflammatory changes to suggest acute appendicitis. There is a large volume of stool throughout the colon. Scattered colonic diverticula are present. The colon is tortuous. There is moderate diverticulosis of the sigmoid colon. No evidence of colitis or diverticulitis. ABDOMINAL WALL: There is stranding of the subcutaneous fat of the left paramedian central abdomen. No discrete fluid collection seen. No hernia. LYMPH NODES: No pathologically enlarged lymph nodes in the abdomen or pelvis. VASCULAR: Tortuous aorta. There is circumferential calcified atherosclerotic change of the aorta but no aneurysm. BLADDER: Fu catheter is seen in the decompressed urinary bladder. PELVIC VISCERA: A pessary is in the vagina. The uterus isn't seen, presumably surgically absent. No adnexal mass. OSSEOUS STRUCTURES: Moderate to severe multilevel degenerative changes of the thoracolumbar spine. Mild superior endplate compression deformity of T10, age indeterminate. Healed right posterior rib fractures. IMPRESSION: Evaluation for infection is limited by lack of IV contrast. There is no hydronephrosis or hydroureter. The bladder is collapsed with a Fu catheter in place. Mild superior endplate compression deformity of T10, age indeterminate. Moderate hiatal hernia.
[2018-01-24 22:41] VITALS: BP 110/68
[2018-01-24 22:46] VITALS: BP 166/84
[2018-01-25 06:58] VITALS: BP 142/76
--- NOTE | 2018-01-25 07:10 | PN- Housestaff ---
Mayra Messina MD,[facility] 01/25/18 0710: Subjective Follow-up For: SIRS/sepsis altered mental status Subjective: Patient visited today, was lying in bed in no acute distress, was alert and oriented. Reported improved general condition. No fever or chills repeated, no shortness of breathing, no chest pain, no other events. Currently on isolation due to history of ESBL. Tank will be remvoed. Review of Systems Constitutional: Reports: see HPI. Objective Last 24 Hrs of Vital Signs/I&O Vital Signs Date Time Temp Pulse Resp B/P B/P Pulse O2 O2 Flow FiO2 Mean Ox Delivery Rate 01/25 08 96 Nasal 2.0L Cannula 01/25 0658 97.9 84 20 142/76 95 01/25 0000 96 Nasal 2.0L Cannula 01/24 2246 98.1 92 20 166/84 96 Nasal 2.0L Cannula 01/24 2241 98.3 78 20 110/68 96 01/24 1629 96 Nasal 2.0L Cannula 01/24 1629 78 18 92/54 96 Nasal 2.0L Cannula 01/24 1550 97.0 86 18 110/60 96 Room Air Room Air Intake & Output 01/25 1600 01/25 0800 01/25 0000 Intake Total 860 Output Total 650 700 Balance 210 -700 Intake, IV 800 Intake, Oral 60 Number 1 Bowel Movements Output, Urine 650 700 Patient 177 lb 162 lb Weight Weight Reported by Patient Measurement Method Physical Exam General Appearance: Alert, Oriented X3, Cooperative, No Acute Distress, ill looking Skin Temp/Moisture Exam: Warm/Dry Sepsis Skin Exam (color): Normal for Ethnicity HEENT: Atraumatic, EOMI Cardiovascular: Normal S1, Normal S2 Lungs: Normal Air Movement Abdomen: Soft Current Medications: Current Medications Sig/Shikha Start time Last Medication Dose Route Stop Time Status Admin Acetaminophen 650 MG Q6P PRN 01/24 1515 AC PO Acetaminophen 1,000 MG Q6P PRN 01/24 1515 AC 01/25 IV 0547 Aspirin 81 MG DAILY 01/25 09 AC 01/25 PO 0848 Atorvastatin Calcium 5 MG 1700 01/24 1700 AC 01/24 PO 1826 Duloxetine HCl 60 MG DAILY 01/25 09 AC 01/25 PO 0848 Enoxaparin Sodium 40 MG DAILY 01/25 09 AC 01/25 SC 0848 Furosemide 40 MG DAILY 01/25 900 AC 01/25 PO 0848 Gabapentin 800 MG TID 01/24 2100 AC 01/25 PO 0848 Insulin Detemir 35 UNITS DAILY 01/25 900 AC 01/25 SC 0847 Insulin Detemir 20 UNITS QPM 01/24 2100 AC 01/24 SC 2151 Lorazepam 0.25 MG Q8P PRN 01/24 1600 AC PO 01/31 1559 Melatonin 6 MG QPM 01/24 2100 AC 01/24 PO 2150 Meropenem 1 GM Q12H 01/24 1600 AC 01/25 IV 0422 Metoclopramide HCl 5 MG BID 01/24 2100 AC 01/25 PO 0848 Sodium Chloride 1,000 ML Q10H 01/24 1515 AC 01/25 IV 0549 Last 24 Hrs of Lab/Mateo Results Last 24 Hrs of Labs/Mics: Laboratory Tests 01/25/18 0703: Anion Gap 8, Estimated GFR > 60, BUN/Creatinine Ratio 37.1 H, CBC w Diff NO MAN DIFF REQ, RBC 3.80 L, MCV 76.4 L, MCH 24.4 L, MCHC 31.9 L, RDW 24.0 H, MPV 9.1, Gran % 59.8, Lymphocytes % 29.2, Monocytes % 8.9, Eosinophils % 1.5, Basophils % 0.6, Absolute Granulocytes 4.8, Absolute Lymphocytes 2.4, Absolute Monocytes 0.7 H, Absolute Eosinophils 0.1, Absolute Basophils 0.1 01/24/18 1336: Lactic Acid 1.0 Assessment/Plan Assessment: Patient is 87 y F with presented to ED with altered mental status and chills PMHx of intersitial cystitis, Type II DM, with diabetic mononeuropathy, HTN, Peripherial vascular disease, generalized anxiety disorder, gerneralized edema, hyperlipidemia, iron deficiency anemia, urge incontinence, IBS with diarrhea, major depressive disorder, anxiety disorder, 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 [place]) and ESBL (treated with gentamicin) VS, Ph Ex at admission: Tmax 100, BP 105/73, saturating with 2l o2 supplement Labs at admission: Hgb 10.1, MCV 76, WBC 10.8, Gran 80%, creatinine 1, BUN 36, UA, cloudy, leukocyte esterase large, RBC few, WBC packed, bacteria rare Imagings at admission: CXR: No acute intrathoracic disease. Head CT: 1. There are no acute bleeds or territorial infarcts. 2. There are progressive changes from diffuse volume loss and chronic microvascular ischemic disease. Patient was admitted to telemetry floor for management of following conditions: Altered mental status Secondary to UTI (concern of SIRS and Sepsis)/ metabolic due to hypo-glycemia Patient's mental condition improved according to family. -Continue admissopm to general medicine floor -Continue to check vital signs, neurochecks -O2 supplements as needed, currently on 1L -Continue IV hydration -Consider stoppoing AB if culture continue to be negative (initially IV meropenem considering ESBL) -Monitor blood sugars, reduce the dose of basal insulin to half -hold BP medication, we will monitor BP - Fu cath removed - Straight cath protocl - follow UA for candidia alb - still not safe for discharge Chronic medical conditions -We will continue home medication DVT prophylaxis, mechanical and pharmacological Diabetic diet FC Problem List: 1. Altered mental status 2. UTI (urinary tract infection) Pain Ratin Pain Location: not at time of interview Pain Goal: Pain 4 or less Pain Plan: Contiue current plan Tomorrow's Labs & Rationales: CBC BEP Indira HAMPTON,Valery 01/25/18 1418: Attending MD Review Statement Attending Statement Attending MD Statement: examined this patient, discuss w/resident/PA/HOLD WORKER, agreed w/resident/PA/HOLD WORKER, reviewed EMR data (avail), discussed with nursing, discussed with case mgmt, amended to note Attending Assessment/Plan: Patient seen and examined. Resting comfortably not in any acute distress. No issues overnight reported by nursing staff. She reports feeling much better this morning. She is afebrile hemodynamically stable. Urine cultures are negative so far. Continue current course of antibiotic therapy with meropenem. Follow recommendations with ID service. Urology consultation appreciated. Discontinue Fu catheter. Anticipate discharge next 48 hours pending results of culture report on further recommendations from the ID service. Her blood glucose levels are currently trending up. Increase her insulin regimen back to her home dose.
--- NOTE | 2018-01-25 07:51 | Cons- Urology ---
General Information and HPI Consulting Request Date of Consult: 01/25/18 Requested By: Valery Jacobson MD Reason for Consult: Recurrent UTI Source of Information: family, old records Exam Limitations: no limitations History of Present Illness: 87 year old female admitted with fever to 101, lethargy, suprapubic discomfort and dysuria. She has a hx of UTI's with ESBL E. coli and has also had fungal UTI in the past. She has a dx of interstitial cystitis made by a urologist in [place] several years ago. She has a pessary in place and this was placed recently although she does not remember by whom. Allergies/Medications Allergies: Coded Allergies: Penicillins (UNKNOWN 01/24/18) Sulfa (Sulfonamide Antibiotics) (UNKNOWN 01/24/18) amoxicillin (From AUGMENTIN) (UNKNOWN 01/24/18) ciprofloxacin (From CIPRO) (UNKNOWN 01/24/18) clavulanic acid (From AUGMENTIN) (UNKNOWN 01/24/18) hydromorphone (From DILAUDID) (UNKNOWN 01/24/18) nitrofurantoin (From MACROBID) (UNKNOWN 01/24/18) Uncoded Allergies: ANESTHIA (UNKNOWN 01/24/18) Home Med List: Acetaminophen (Tylenol Arthritis) 650 MG TABLET.ER 1 TAB PO DAILY HIP PAIN ( Reported) Ascorbate Calcium (Vitamin C) 500 MG TABLET 1 TAB PO BID VITAMIN SUPPORT ( Reported) Aspirin (Aspirin*) 81 MG TAB.CHEW 1 TAB PO DAILY HEART HEALTH (Reported) Duloxetine HCl 60 MG CAPSULE.DR 1 CAP PO DAILY DEPRESSION (Reported) Estradiol (Estring) 7.5 MCG/24 HOUR VAG.RING 1 RING VAG Q3M PAV (Reported) Furosemide 40 MG TABLET 1 TAB PO DAILY WATER RETENTION (Reported) Gabapentin (Neurontin) 800 MG TABLET 1 TAB PO TID DIABETES (Reported) Insulin Aspart (Novolog) (Unknown Strength) VIAL (Unknown Dose) SC SEE SLIDING SCALE DIABETES (Reported) Insulin Detemir (Levemir) 100 UNIT/ML VIAL 70 UNIT SC DAILY DIABETES ( Reported) Insulin Detemir (Levemir) 100 UNIT/ML VIAL 45 UNITS SC QPM DIABETES (Reported ) Linagliptin (Tradjenta) 5 MG TABLET 1 TAB PO DAILY DIABETES (Reported) Lorazepam (Ativan) 0.5 MG TABLET 0.5 TAB PO Q8P PRN ANXIETY (Reported) Meclizine HCl 25 MG TABLET 1 TAB PO TIDPRN PRN DIZZINESS (Reported) Melatonin 3 MG TABLET 2 TAB PO QPM SLEEP HELP (Reported) Meloxicam 15 MG TABLET 1 TAB PO DAILY ARTHRITIS (Reported) Methenamine Hippurate 1 GRAM TABLET 1 TAB PO BID URINE (Reported) Metoclopramide HCl 5 MG TABLET 1 TAB PO BIDP PRN GI (Reported) Metoclopramide HCl (Reglan) 5 MG TABLET 1 TAB PO BID GI (Reported) Metoprolol Succinate 100 MG TAB.ER.24H 1 TAB PO DAILY HEART (Reported) Mirabegron (Myrbetriq) 25 MG TAB.ER.24H 1 TAB PO DAILY URINE (Reported) Mirtazapine 45 MG TABLET 1 TAB PO QPM SLEEP (Reported) Omeprazole 20 MG CAPSULE.DR 1 CAP PO BID GI (Reported) Oxybutynin Chloride (Oxybutynin Chloride ER) 10 MG TAB.ER.24 1 TAB PO DAILY BLADDER (Reported) Polyethylene Glycol 3350 (Miralax) 17 GRAM POWD.PACK 1 PAC PO DAILY GI ( Reported) dissolve in water Sennosides (Senna) 8.6 MG TABLET 2 TAB PO QPM GI (Reported) Simvastatin (Simvastatin*) 10 MG TABLET 1 TAB PO QPM CHOLESTEROL (Reported) Tramadol HCl 50 MG TABLET 0.5 TAB PO BID HIP PAIN (Reported) Trazodone HCl 150 MG TABLET 0.5 TAB PO QPM DEPRESSION (Reported) Past History Medical History Blood Transfusion Hx: No Neurological: DIABETIC NEUROPATHY Cardiovascular: hypertension, hyperlipidemia, PVD, GENERALIZED EDEMA Respiratory: NONE Gastrointestinal: constipation, GERD, hiatal hernia, irritable bowel syndrome Hepatic: FATTY LIVER-BIOPSIES Renal: UTI Musculoskeletal: rheumatoid arthritis Psychiatric: anxiety, depression, insomnia Endocrine: diabetes Blood Disorders: IRON DEFICIENCY ANEMIA VIT D DEFICIENCY Cancer(s): breast cancer MANAGER CIVIL/Reproductive: uterine/bladder prolapse Other Medical Hx: Psoriasis Surgical History Pertinent Surgical History: non-contributory Psychosocial History Where Do You Live? [facility] Smoking Status: Never Smoked ETOH Use: denies use Illicit Drug Use: denies illicit drug use Exam & Diagnostic Data Vital Signs and I&O Vital Signs Date Time Temp Pulse Resp B/P B/P Pulse O2 O2 Flow FiO2 Mean Ox Delivery Rate 01/25 0658 97.9 84 20 142/76 95 01/25 0000 96 Nasal 2.0L Cannula 01/24 2246 98.1 92 20 166/84 96 Nasal 2.0L Cannula 01/24 2241 98.3 78 20 110/68 96 01/24 1629 96 Nasal 2.0L Cannula 01/24 1629 78 18 92/54 96 Nasal 2.0L Cannula 01/24 1550 97.0 86 18 110/60 96 Room Air Room Air 01/24 1042 97 Non 10L ReBreather 01/24 1006 100.0 99 17 105/73 96 Non 10L ReBreather Intake & Output 01/25 0800 01/25 0000 01/24 1600 01/24 0800 01/24 0000 01/23 1600 Intake Total 1250 Output Total 650 700 Balance -650 -700 1250 Intake, IV 1250 Output, Urine 650 700 Patient 177 lb 162 lb 162 lb Weight Weight Reported by Patient Reported by Patient Measurement Method No acute distress Back: No CVA tenderness Abd: Lower midline scar is well healed. Soft, non tender and no masses Gentialia: sarkar in place. Draining most clear urine with debri CT scan reviewed. No hydronephrosis. No urinary tract stones. No findings of pyelonephritis. Sarkar and pessary in place. Bladder appropriately collapsed Laboratory Tests 01/25 01/24 01/24 0703 1336 1027 Chemistry Sodium Pending Potassium Pending Chloride Pending Carbon Dioxide Pending Anion Gap Pending BUN Pending Creatinine Pending BUN/Creatinine Ratio Pending Lactic Acid (0.7 - 2.1 mmol/L) 1.0 Hematology CBC w Diff Pending WBC Pending RBC Pending Hgb Pending Hct Pending MCV Pending MCH Pending MCHC Pending RDW Pending Plt Count Pending MPV Pending Urines Urinalysis LIGHT H Urine Color (YEL,AMB,STR) YEL Urine Clarity (CLEAR) CLDY H Urine pH (5.0 - 8.0) 6.0 Ur Specific [place] (1.001 - 1.035) 1.020 Urine Protein (NEG,<30 MG/DL) 100 H Urine Ketones (NEG) NEG Urine Nitrite (NEG) NEG Urine Bilirubin (NEG) NEG Urine Urobilinogen (0.1 - 1.0 EU/dl) 0.2 Ur Leukocyte Esterase (NEG) LARGE H Ur Microscopic SEDIMENT EXAMINED Urine RBC (0 - 5 /HPF) FEW H Urine WBC (0 - 2 /HPF) PACKD H Ur Epithelial Cells (NONE,FEW) FEW Urine Bacteria (NEG/NONE) RARE H Urine Hemoglobin (NEG) MOD H Urine Glucose (N MG/DL) NEG 01/24 1015 Chemistry Sodium (137 - 145 mmol/L) 140 Potassium (3.5 - 5.1 mmol/L) 4.2 Chloride (98 - 107 mmol/L) 105 Carbon Dioxide (22 - 30 mmol/L) 25 Anion Gap (5 - 16) 10 BUN (7 - 17 mg/dL) 36 H Creatinine (0.5 - 1.0 mg/dL) 1.0 Estimated GFR (>60 ml/min) 52 L BUN/Creatinine Ratio (7 - 25 %) 36.0 H Glucose (65 - 99 mg/dL) 164 H Lactic Acid (0.7 - 2.1 mmol/L) 1.9 Calcium (8.4 - 10.2 mg/dL) 8.5 Total Bilirubin (0.2 - 1.3 mg/dL) 0.3 AST (14 - 36 U/L) 25 ALT (9 - 52 U/L) 26 Alkaline Phosphatase (<127 U/L) 108 Troponin I (< 0.11 ng/ml) < 0.01 Total Protein (6.3 - 8.2 g/dL) 6.1 L Albumin (3.5 - 5.0 g/dL) 3.2 L Globulin (1.9 - 4.2 gm/dL) 2.9 Albumin/Globulin Ratio (1.1 - 2.2 %) 1.1 Coagulation D-Dimer High Sensitivty (0 - 243 ng/ml) 644 H Hematology CBC w Diff NO MAN DIFF REQ WBC (4.8 - 10.8 /CUMM) 10.8 RBC (4.20 - 5.40 /CUMM) 4.18 L Hgb (12.0 - 16.0 G/DL) 10.1 L Hct (37 - 47 %) 31.8 L MCV (81.0 - 99.0 FL) 76.0 L MCH (27.0 - 31.0 PG) 24.3 L MCHC (33.0 - 37.0 G/DL) 31.9 L RDW (11.5 - 14.5 %) 24.5 H Plt Count (130 - 400 /CUMM) 189 MPV (7.4 - 10.4 FL) 9.2 Gran % (42.2 - 75.2 %) 80.8 H Lymphocytes % (20.5 - 51.1 %) 9.6 L Monocytes % (1.7 - 9.3 %) 9.0 Eosinophils % (0 - 5 %) 0.3 Basophils % (0.0 - 2.0 %) 0.3 Absolute Granulocytes (1.4 - 6.5 /CUMM) 8.7 H Absolute Lymphocytes (1.2 - 3.4 /CUMM) 1.0 L Absolute Monocytes (0.10 - 0.60 /CUMM) 1.0 H Absolute Eosinophils (0.0 - 0.7 /CUMM) 0 Absolute Basophils (0.0 - 0.2 /CUMM) 0 Urine culture result pending Assessment/Plan Assessment/Plan Imp: 1. Recurrent UTI with no anatomical abnormality of urinary tract on CT scan 2. Interstitial cystitis, by hx 3. s/p hysterectomy 4. Multiple medical issues Plan: 1. f/u urine C&S 2. abx per ID 3. Would send urine from sarkar for fungal culture 4. Would remove sarkar after urine obtained and str cath prn 5. Pt should f/u in office. Should have outpatient cystoscopy to complete w/u for recurrent UTI Consult Acknowledgment - Thank you for your consult request.
[2018-01-25 08:08] LABS: ABSOLUTE BASOPHIL COUNT 0.1 /CUMM (0.0-0.2); ABSOLUTE EOSINOPHIL COUNT 0.1 /CUMM (0.0-0.7); ABSOLUTE GRANULOCYTE CT 4.8 /CUMM (1.4-6.5); ABSOLUTE LYMPH COUNT 2.4 /CUMM (1.2-3.4); ABSOLUTE MONOCYTE COUNT 0.7 /CUMM (0.10-0.60); BASOPHIL % 0.6 % (0.0-2.0); EOSINOPHIL % 1.5 % (0-5); GRANULOCYTE % 59.8 % (42.2-75.2); MEAN CORPUSCULAR HGB 24.4 PG (27.0-31.0); MEAN CORPUSCULAR HGB CONC 31.9 G/DL (33.0-37.0); MEAN CORPUSCULAR VOLUME 76.4 FL (81.0-99.0); MEAN PLATELET VOLUME 9.1 FL (7.4-10.4); PLATELET COUNT 172 /CUMM (130-400); WHITE BLOOD CELL COUNT 8.1 /CUMM (4.8-10.8)
--- NOTE | 2018-01-25 13:07 | PN- Infect Dx ---
Subjective Subjective: T-max 100. She feels somewhat better but still complains of fatigue. Her Fu catheter was removed this morning and she has not yet urinated. Objective Last 24 Hrs of Vital Signs/I&O Vital Signs Date Time Temp Pulse Resp B/P B/P Pulse O2 O2 Flow FiO2 Mean Ox Delivery Rate 01/25 08 96 Nasal 2.0L Cannula 01/25 0658 97.9 84 20 142/76 95 01/25 0000 96 Nasal 2.0L Cannula 01/24 2246 98.1 92 20 166/84 96 Nasal 2.0L Cannula 01/24 2241 98.3 78 20 110/68 96 01/24 1629 96 Nasal 2.0L Cannula 01/24 1629 78 18 92/54 96 Nasal 2.0L Cannula 01/24 1550 97.0 86 18 110/60 96 Room Air Room Air Intake & Output 01/25 1600 01/25 0800 01/25 0000 Intake Total 860 Output Total 650 700 Balance 210 -700 Intake, IV 800 Intake, Oral 60 Number 1 Bowel Movements Output, Urine 650 700 Patient 177 lb 162 lb Weight Weight Reported by Patient Measurement Method Physical Exam Other Physical Findings: She appears comfortable, more awake and alert than yesterday, in no acute distress Lungs decreased breath sounds at the right base Heart regular rhythm with no murmur Abdomen is soft, nontender with positive bowel sounds Back left CVA tenderness Extremities no cyanosis, clubbing edema Results Last 24 Hours of Lab Results: Laboratory Tests 01/25 01/24 0703 1336 Chemistry Sodium (137 - 145 mmol/L) 141 Potassium (3.5 - 5.1 mmol/L) 4.8 Chloride (98 - 107 mmol/L) 107 Carbon Dioxide (22 - 30 mmol/L) 26 Anion Gap (5 - 16) 8 BUN (7 - 17 mg/dL) 26 H Creatinine (0.5 - 1.0 mg/dL) 0.7 Estimated GFR (>60 ml/min) > 60 BUN/Creatinine Ratio (7 - 25 %) 37.1 H Lactic Acid (0.7 - 2.1 mmol/L) 1.0 Hematology CBC w Diff NO MAN DIFF REQ WBC (4.8 - 10.8 /CUMM) 8.1 RBC (4.20 - 5.40 /CUMM) 3.80 L Hgb (12.0 - 16.0 G/DL) 9.3 L Hct (37 - 47 %) 29.0 L MCV (81.0 - 99.0 FL) 76.4 L MCH (27.0 - 31.0 PG) 24.4 L MCHC (33.0 - 37.0 G/DL) 31.9 L RDW (11.5 - 14.5 %) 24.0 H Plt Count (130 - 400 /CUMM) 172 MPV (7.4 - 10.4 FL) 9.1 Gran % (42.2 - 75.2 %) 59.8 Lymphocytes % (20.5 - 51.1 %) 29.2 Monocytes % (1.7 - 9.3 %) 8.9 Eosinophils % (0 - 5 %) 1.5 Basophils % (0.0 - 2.0 %) 0.6 Absolute Granulocytes (1.4 - 6.5 /CUMM) 4.8 Absolute Lymphocytes (1.2 - 3.4 /CUMM) 2.4 Absolute Monocytes (0.10 - 0.60 /CUMM) 0.7 H Absolute Eosinophils (0.0 - 0.7 /CUMM) 0.1 Absolute Basophils (0.0 - 0.2 /CUMM) 0.1 Last 24 Hours of [place] Results: Urine culture January 24 negative Blood cultures 2 January 24 negative Recent Imaging Studies: CT of the abdomen and pelvis January 24 reveals no hydronephrosis or hydroureter, with a collapsed bladder; compression deformity of T10, age indeterminate CT of the head January 24 no acute process Assessment/Plan ID Impression: Stable, with no further fevers and with her white blood cell count normal, on Meropenem, begun yesterday for the possibility of sepsis of urologic origin, though her urine culture is so far negative and suspect that her mild leukocytosis may have represented hemoconcentration secondary to dehydration, with her BUN also improved today. She does have a history of interstitial cystitis, which could explain her urinary symptoms and her pyuria. Urology consult noted and appreciated. Suggestion: 1. Follow-up final urine culture 2. Straight cath schedule if urinary retention 3. Continue Meropenem pending above
[2018-01-25 13:50] VITALS: BP 148/70
--- NOTE | 2018-01-25 16:06 | Discharge Summary ---
Visit Information Visit Dates Admission Date: 01/24/18 Discharge Date: 01/718 Hospital Course Course Attending Physician: Valery Jacobson MD Primary Care Physician: Fara Sears MD Hospital Course: Patient is 87-year-old female with past medical history significant for recurrent urinary tract infections(ESBL in the past), chronic interstitial cystitis, insulin-dependent diabetes mellitus, negative with neuropathy, hypertension and hyperlipidemia, GERD, hiatal hernia, presented from [facility] further evaluation of altered mental status. Pt has been in the facility for more than 5-6 years, has been treated multiple times with IV and oral for recurrent urinary tract infections. Last infection was in November /December (urine culture positive for ESBL producing E. coli and Kelsy ) and was treated with doxycycline and fluconazole. Following problems were addressed while patient was on [facility] floor: Altered mental status(metabolic encephalopathy in the setting of severe complicated urinary tract infection) with a concern of sepsis, history of ESBL: In the ER patient , she was lethargic and hypotensive, tachycardic and febrile to 100. Labs revealed leukocytosis without any bands. Fu catheter was placed and that revealed large pus.. Urinalysis was positive for large leukocyte esterase. She was started on broad-spectrum IV meropenem (in the context of previous ESBL infections) Patient was admitted to the [facility], IV meropenem was continued. ID consult was obtained as per recommendations CT abdomen and pelvis was obtained that didn't reveal any hydronephrosis/pyelonephritis. Patient remained afebrile blood pressure improved with IV fluids. Dr. Lynn, urologist saw the patient during the hospitalization as physician Fu catheter was discontinued and patient was put on straight cath protocol. With cultures remaining negative antibiotics were discontinued, patient needs to follow with her urologist for evaluation of recurrent UTI/possible cystoscoy. If patient does not have a urologist she can follow with Dr Lynn as instructed. Hypoglycemia -History of insulin-dependent diabetes mellitus: The patient was hypoglycemic en route to hospital(blood sugar was in 30s) that improved after giving glucagon. In the hospital she was closely monitored for signs of hypoglycemia. Initially put on half of home dose of Levemir. Blood sugar levels remained stable she was discharged on home dose of Levemir 70 units in the morning and 25 units at bedtime. Other chronic medical conditions including interstitial cystitis, neuropathy, hypertension and hyperlipidemia Antihypertensives were held initially due to concerns of sepsis resumed later on .Home medications were continued during the hospitalization DVT prophylaxis with subcutaneous Lovenox Mild pain controlled with Tylenol Patient is full code Allergies: Coded Allergies: Penicillins (UNKNOWN 01/24/18) Sulfa (Sulfonamide Antibiotics) (UNKNOWN 01/24/18) amoxicillin (From AUGMENTIN) (UNKNOWN 01/24/18) ciprofloxacin (From CIPRO) (UNKNOWN 01/24/18) clavulanic acid (From AUGMENTIN) (UNKNOWN 01/24/18) hydromorphone (From DILAUDID) (UNKNOWN 01/24/18) nitrofurantoin (From MACROBID) (UNKNOWN 01/24/18) Uncoded Allergies: ANESTHIA (UNKNOWN 01/24/18) Significant Procedures: EXAM TYPE: CAT - CT ABD & PELVIS W/O IV CONTRAS EXAMINATION: CT ABDOMEN AND PELVIS WITHOUT CONTRAST CLINICAL INFORMATION: Fever, possibly urine. Concern for sepsis. COMPARISON: None. TECHNIQUE: Multidetector volumetric imaging was performed from the lung bases through the pubic symphysis. Sagittal and coronal reformatted images were obtained on the technologist workstation. Total exam dose-length product 403 mGy-cm FINDINGS: The lack of intravenous contrast limits evaluation of the solid visceral organs including the liver, spleen, pancreas, and kidneys. LUNG BASES: The visualized lung bases are unremarkable. LIVER, GALLBLADDER, AND BILIARY TREE: Limited non-contrast evaluation is normal. No gross focal hepatic lesion. Normal liver size and contour. No gross biliary ductal dilation. There are hyperdense gallstones layering in the gallbladder. No biliary ductal dilatation. No pericholecystic fluid or gallbladder wall thickening. PANCREAS: The pancreas is atrophic. SPLEEN: Limited non-contrast evaluation is normal. ADRENAL GLANDS: Normal; no adrenal mass. KIDNEYS AND URETERS: Limited non-contrast evaluation is normal. No hydronephrosis, hydroureter, or calculi seen. GASTROINTESTINAL TRACT: Moderate hiatal hernia. Small bowel is nondilated. The appendix is not seen but there are no right lower quadrant inflammatory changes to suggest acute appendicitis. There is a large volume of stool throughout the colon. Scattered colonic diverticula are present. The colon is tortuous. There is moderate diverticulosis of the sigmoid colon. No evidence of colitis or diverticulitis. ABDOMINAL WALL: There is stranding of the subcutaneous fat of the left paramedian central abdomen. No discrete fluid collection seen. No hernia. LYMPH NODES: No pathologically enlarged lymph nodes in the abdomen or pelvis. VASCULAR: Tortuous aorta. There is circumferential calcified atherosclerotic change of the aorta but no aneurysm. BLADDER: Fu catheter is seen in the decompressed urinary bladder. PELVIC VISCERA: A pessary is in the vagina. The uterus isn't seen, presumably surgically absent. No adnexal mass. OSSEOUS STRUCTURES: Moderate to severe multilevel degenerative changes of the thoracolumbar spine. Mild superior endplate compression deformity of T10, age indeterminate. Healed right posterior rib fractures. IMPRESSION: Evaluation for infection is limited by lack of IV contrast. There is no hydronephrosis or hydroureter. The bladder is collapsed with a Fu catheter in place. Mild superior endplate compression deformity of T10, age indeterminate. Moderate hiatal hernia. DICTATED BY: Luther Andrews MD DATE/TIME DICTATED:01/24/181954 RECYCLING PROGRAM MANAGER:JANAY DATE/TIME TRANSCRIBED:01/24/181954 CONFIDENTIAL, DO NOT COPY WITHOUT APPROPRIATE AUTHORIZATION. <Electronically signed in Other Vendor System> SIGNED BY: Luther Andrews MD [id number] Disposition Summary Disposition Principal Diagnosis: Altered mental status(metabolic encephalopathy in the setting of severe complicated urinary tract infection) with a concern of sepsis, history of ESBL Additional Diagnosis: Hypoglycemia -History of insulin-dependent diabetes mellitus Discharge Disposition: SNF Discharge Instructions General Discharge Information Code Status: Full Code Patient's Diet: Heart healthy diet Patient's Activity: As tolerated Follow-Up Instructions/Appts: 1. Please follow-up with your primary physician within 1 week after discharge 2. Please follow-up with your urologist within 1-2 weeks after discharge, if you dont have a urologist in facility you can follow with Dr Lynn as instructed. 3. Please take the medications as directed Medications at Discharge Discharge Medications: Continue taking these medications: Lorazepam (Ativan) 0.5 MG TABLET 0.5 Tablet ORAL EVERY 8 HOURS NEEDED as needed for ANXIETY Insulin Detemir (Levemir) 100 UNIT/ML VIAL 70 Unit Inject into fatty tissue DAILY Qty = 10 Comments: LAST GIVEN 01/28/18 @ 1141 Metoclopramide HCl (Metoclopramide HCl) 5 MG TABLET 1 Tablet ORAL 2 x Daily as needed as needed for GI Qty = 60 Comments: LAST GIVEN 01/28/18 @ 0848 Insulin Detemir (Levemir) 100 UNIT/ML VIAL 45 Units Inject into fatty tissue Every night Comments: LAST GIVEN 01/27/18 @ 2105 Acetaminophen (Tylenol Arthritis) 650 MG TABLET.ER 1 Tablet ORAL DAILY Comments: LAST GIVEN 01/25/18 @ 1221 Meloxicam (Meloxicam) 15 MG TABLET 1 Tablet ORAL DAILY Qty = 30 Tramadol HCl (Tramadol HCl) 50 MG TABLET 0.5 Tablet ORAL TWICE DAILY Estradiol (Estring) 7.5 MCG/24 HOUR VAG.RING 1 Ring VAGINALLY Every 3 months Qty = 1 Omeprazole (Omeprazole) 20 MG CAPSULE.DR 1 Capsule ORAL TWICE DAILY Meclizine HCl (Meclizine HCl) 25 MG TABLET 1 Tablet ORAL THREE TIMES A DAY NEEDED as needed for DIZZINESS Qty = 42 Comments: LAST GIVEN 01/28/18 @ 0848 Trazodone HCl (Trazodone HCl) 150 MG TABLET 0.5 Tablet ORAL Every night Qty = 15 Oxybutynin Chloride (Oxybutynin Chloride ER) 10 MG TAB.ER.24 1 Tablet ORAL DAILY Qty = 30 Comments: LAST GIVEN 01/28/18 @ 1217 Methenamine Hippurate (Methenamine Hippurate) 1 GRAM TABLET 1 Tablet ORAL TWICE DAILY Qty = 28 Ascorbate Calcium (Vitamin C) 500 MG TABLET 1 Tablet ORAL TWICE DAILY Mirtazapine (Mirtazapine) 45 MG TABLET 1 Tablet ORAL Every night Qty = 30 Comments: LAST GIVEN 01/28/18 @0848 Sennosides (Senna) 8.6 MG TABLET 2 Tablet ORAL Every night Melatonin (Melatonin) 3 MG TABLET 2 Tablet ORAL Every night Polyethylene Glycol 3350 (Miralax) 17 GRAM POWD.PACK 1 Packet ORAL DAILY Instructions: dissolve in water Insulin Aspart (Novolog) (Unknown Strength) VIAL Unknown Dose Inject into fatty tissue SEE SLIDING SCALE Comments: LAST GIVEN 01/28/18 @ 1217 Duloxetine HCl (Duloxetine HCl) 60 MG CAPSULE.DR 1 Capsule ORAL DAILY Qty = 30 Comments: LAST GIVEN 01/28/18 @ 0848 Simvastatin (Simvastatin*) 10 MG TABLET 1 Tablet ORAL Every night Qty = 30 Aspirin (Aspirin*) 81 MG TAB.CHEW 1 Tablet ORAL DAILY Comments: LAST GIVEN 01/28/18 @ 0848 Linagliptin (Tradjenta) 5 MG TABLET 1 Tablet ORAL DAILY Qty = 14 Metoprolol Succinate (Metoprolol Succinate) 100 MG TAB.ER.24H 1 Tablet ORAL DAILY Qty = 30 Mirabegron (Myrbetriq) 25 MG TAB.ER.24H 1 Tablet ORAL DAILY Qty = 14 Gabapentin (Neurontin) 800 MG TABLET 1 Tablet ORAL THREE TIMES DAILY Qty = 90 Furosemide (Furosemide) 40 MG TABLET 1 Tablet ORAL DAILY Qty = 14 Comments: LAST GIVEN 01/28/18 @ 0848 Copies To: Fara Sears MD Attending MD Review Statement Documenting Attending: Valery Jacobson MD Other Findings: Medically stable to be discharged today.
[2018-01-25 23:01] VITALS: BP 141/94
[2018-01-26 06:23] VITALS: BP 142/86
--- NOTE | 2018-01-26 06:43 | PN- Housestaff ---
[facility] Subjective Follow-up For: Sepsis possibly due to UTI AMS Subjective: Patient remained afebrileseen and examined this morning. Patient reported having pain while urinating 8/10 and frequency of urination. Patient is feeling much improved now. Patient denied any chest pain, palpitation, nausea, vomiting , chills, fever, abdominal pain and dysuria. She is tolerating oral diet. Review of Systems Constitutional: Denies: chills, fever, malaise. EENTM: Reports: no symptoms. Cardiovascular: Denies: chest pain, palpitations. Respiratory: Denies: cough, short of breath, sputum production. Gastrointestinal: Denies: abdominal pain, diarrhea, distention, melena, nausea. Genitourinary: Reports: dysuria, frequency, pain. Musculoskeletal: Reports: see HPI. Neurological/Psychological: Reports: no symptoms. Objective Last 24 Hrs of Vital Signs/I&O Vital Signs Date Time Temp Pulse Resp B/P B/P Pulse O2 O2 Flow FiO2 Mean Ox Delivery Rate 01/26 0623 98.1 108 20 142/86 92 Room Air 01/25 2301 98.3 100 20 141/94 92 Room Air 01/25 1350 98.4 87 18 148/70 96 Room Air Intake & Output 01/26 1600 01/26 0800 05 0000 Intake Total 1040 1140 Output Total 300 Balance 1040 840 Intake, IV 800 300 Intake, Oral 240 840 Number 0 2 Bowel Movements Output, Urine 300 Physical Exam General Appearance: Alert, Oriented X3, Cooperative Skin Temp/Moisture Exam: Warm/Dry Sepsis Skin Exam (color): Normal for Ethnicity HEENT: Atraumatic, PERRLA, EOMI Neck: Supple Cardiovascular: Normal S1, Normal S2 Lungs: Clear to Auscultation Abdomen: Soft, No Tenderness Neurological: Normal Speech, Strength at 5/5 X4 Ext, Normal Tone Extremities: No Edema Assessment/Plan Assessment: 87 YO F with PMH of intersitial cystitis, Type II DM, with diabetic mononeuropathy, HTN, Peripherial vascular disease, generalized anxiety disorder, gerneralized edema, hyperlipidemia, iron deficiency anemia, urge incontinence, IBS with diarrhea, major depressive disorder, anxiety disorder, RA that is rf positive, dysphagia, GERD, Psoriasis, h/o candidia and Escherichia coli (treated with fluconazole and? Doxey) and ESBL (treated with gentamicin) presented to ED with altered mental status and chills. Following the patient following problems: Sepsis possibly due to UTI: -On admission patient was meeting SIRS criteria her urine was positive for plus and she has a past medical history of interstitial cystitis treated with different antibiotics. -Continue meropenem. Day 3 -Patient is on IV fluids we will discontinue today as patient is tolerating oral diet. We will encourage her to take oral fluids. -Blood cultures and urine cultures are negative so far -Follow-up urine cultures for fungal infection. -Urine catheter was removed yesterday as recommended by urology. -Follow-up urology recommendations -Follow-up ID recommendations History of diabetes: -Accu-Cheks -Continue insulin NovoLog according to sliding scale -Continue insulin Levemir 70 units subcutaneous in a.m. and 45 units in p.m. History of hypertension hyperlipidemia: -Continue atorvastatin -Holding antihypertensive medications History of peripheral edema and peripheral neuropathy: -Continue Lasix -Continue gabapentin -Continuing metoprolol as patient was tachycardic last night. History of anxiety and depression: -Continue lorazepam -Continue Cymbalta DVT prophylaxis: Mechanical and subcutaneous Lovenox CODE STATUS: Full code Problem List: 1. Sepsis 2. UTI (urinary tract infection) 3. Altered mental status Pain Ratin Pain Location: none Pain Goal: Remain pain free Pain Plan: pain pthway Tomorrow's Labs & Rationales: cbc/bep Tl HAMPTON,Jacinta 01/26/18 1106: Attending MD Review Statement Attending Statement Attending MD Statement: examined this patient, discuss w/resident/PA/PIT FURNACE OPERATOR, agreed w/resident/PA/PIT FURNACE OPERATOR, reviewed EMR data (avail), discussed with nursing, reviewed images Attending Assessment/Plan: 87-year-old female with multiple complex medical problems and on multiple medications with diabetes and chronic interstitial cystitis is here with sepsis of urological origin. We are treating her with meropenem for the suspected ESBL and awaiting the cultures. The sarkar has been taken out and if she has problems urinating then a straight cath protocol will be instituted. White count is slowly creeping up from 8-10,000 and will watch that closely. Will need to make sure that we've restarted most of her chronic medications as long as clinical stability allows us to do so. Watch her sugars on her Levemir dose which is fairly high given that she came in hypoglycemic and follow-up.
[2018-01-26 08:25] LABS: ABSOLUTE BASOPHIL COUNT 0.1 /CUMM (0.0-0.2); ABSOLUTE EOSINOPHIL COUNT 0.3 /CUMM (0.0-0.7); ABSOLUTE GRANULOCYTE CT 6.8 /CUMM (1.4-6.5); ABSOLUTE LYMPH COUNT 2.2 /CUMM (1.2-3.4); ABSOLUTE MONOCYTE COUNT 0.7 /CUMM (0.10-0.60); BASOPHIL % 0.5 % (0.0-2.0); EOSINOPHIL % 3.1 % (0-5); GRANULOCYTE % 67.6 % (42.2-75.2); HEMATOCRIT 30.9 % (37-47); MEAN CORPUSCULAR HGB 24.5 PG (27.0-31.0); MEAN CORPUSCULAR HGB CONC 31.9 G/DL (33.0-37.0); MEAN CORPUSCULAR VOLUME 76.7 FL (81.0-99.0); PLATELET COUNT 176 /CUMM (130-400); RBC DISTRIBUTION WIDTH 24.5 % (11.5-14.5); RED BLOOD CELL CT 4.02 /CUMM (4.20-5.40)
[2018-01-26 14:15] VITALS: BP 142/66
[2018-01-26 23:48] VITALS: BP 148/63
[2018-01-27 06:45] VITALS: BP 144/64
--- NOTE | 2018-01-27 07:02 | PN- Housestaff ---
[facility]702: Subjective Follow-up For: Sepsis possibly due to UTI Subjective: Overnight events. Patient remained afebrile,. Seen and examined this morning. She denied any chest pain, short of breath, nausea, vomiting, chills, fever, abdominal pain and dysuria. Patient is tolerating diet. She is feeling much improved but patient stated feeling weak while ambulation. Patient needs physical therapy. Review of Systems Constitutional: Reports: weakness. Denies: chills, fever. EENTM: Reports: no symptoms. Cardiovascular: Denies: chest pain, palpitations. Respiratory: Denies: cough, orthopnea, short of breath, sputum production. Gastrointestinal: Denies: abdominal pain, diarrhea, melena, nausea, vomiting. Genitourinary: Reports: no symptoms. Neurological/Psychological: Reports: no symptoms. Objective Last 24 Hrs of Vital Signs/I&O Vital Signs Date Time Temp Pulse Resp B/P B/P Pulse O2 O2 Flow FiO2 Mean Ox Delivery Rate 01/27 0645 98.0 83 20 144/64 92 01/26 2348 98.2 77 20 148/63 92 Room Air 01/26 1415 98.1 102 20 142/66 92 Room Air 01/26 1314 98.2 102 18 142/60 01/26 0915 98 Intake & Output 01/27 1600 01/27 0800 / 0000 Intake Total 250 450 Output Total Balance 250 450 Intake, IV 10 Intake, Oral 240 450 Number 0 Bowel Movements Physical Exam General Appearance: Alert, Oriented X3, Cooperative Skin: No Rashes Skin Temp/Moisture Exam: Warm/Dry Sepsis Skin Exam (color): Normal for Ethnicity HEENT: Atraumatic, PERRLA, EOMI Neck: Supple Cardiovascular: Normal S1, Normal S2 Lungs: Clear to Auscultation Abdomen: Soft, No Tenderness Neurological: Normal Speech, Normal Tone Extremities: No Edema Assessment/Plan Assessment: 87 YO F with PMH of intersitial cystitis, Type II DM, with diabetic mononeuropathy, HTN, Peripherial vascular disease, generalized anxiety disorder, gerneralized edema, hyperlipidemia, iron deficiency anemia, urge incontinence, IBS with diarrhea, major depressive disorder, anxiety disorder, RA that is rf positive, dysphagia, GERD, Psoriasis, h/o candidia and Escherichia coli (treated with fluconazole and? Doxey) and ESBL (treated with gentamicin) presented to ED with altered mental status and chills. Following the patient following problems: Sepsis possibly due to UTI:(IMPROVING) -On admission patient was meeting SIRS criteria her urine was positive for plus and she has a past medical history of interstitial cystitis treated with different antibiotics. -Meropenem was discontinued today as recommended by ID. -We will follow her off antibiotics for now -Blood cultures and urine cultures are negative so far -Follow-up urology recommendations -Follow-up ID recommendations History of diabetes: -Accu-Cheks -Her fasting blood sugar was 183 -Continue insulin NovoLog according to sliding scale -Continue insulin Levemir 70 units subcutaneous in a.m. and 45 units in p.m. History of hypertension hyperlipidemia: -Continue atorvastatin -Metoprolol was started. History of peripheral edema and peripheral neuropathy: -Continue Lasix -Continue gabapentin History of anxiety and depression: -Continue lorazepam -Continue Cymbalta DVT prophylaxis: Mechanical and subcutaneous Lovenox CODE STATUS: Full code Problem List: 1. UTI (urinary tract infection) 2. Altered mental status 3. Sepsis Pain Ratin Pain Location: NONE Pain Goal: Remain pain free Pain Plan: PAIN PATHWAY Tomorrow's Labs & Rationales: CBC/BEP Jacinta Boothe MD 01/27/18 1150: Attending MD Review Statement Attending Statement Attending MD Statement: examined this patient, discuss w/resident/PA/SINTER FEEDER, agreed w/resident/PA/SINTER FEEDER, reviewed EMR data (avail), discussed with nursing, reviewed images Attending Assessment/Plan: Appreciate ID follow-up. Given all cultures are negative plan is to stop the meropenem and watch her off antibiotics. ID feels that maybe her symptomatology is attributable to her chronic interstitial cystitis. Will need to follow-up closely. We'll also get a PT eval and mobilize her.
--- NOTE | 2018-01-27 07:58 | PN- Infect Dx ---
Subjective Subjective: Afebrile. She feels improved, though still notes some suprapubic discomfort. Objective Last 24 Hrs of Vital Signs/I&O Vital Signs Date Time Temp Pulse Resp B/P B/P Pulse O2 O2 Flow FiO2 Mean Ox Delivery Rate 01/27 0645 98.0 83 20 144/64 92 01/26 2348 98.2 77 20 148/63 92 Room Air 01/26 1415 98.1 102 20 142/66 92 Room Air 01/26 1314 98.2 102 18 142/60 01/26 0915 98 Intake & Output 01/27 0800 01/27 0000 01/26 1600 Intake Total 250 450 937.5 Output Total Balance 250 450 937.5 Intake, IV 10 337.5 Intake, Oral 240 450 600 Number 0 1 Bowel Movements Physical Exam Other Physical Findings: She appears comfortable in no acute distress Lungs are clear Heart regular rhythm with no murmur Abdomen is soft, mildly tender over the suprapubic area, with no guarding or rebound, positive bowel sounds Back no CVA tenderness Extremities no cyanosis, clubbing or edema Results Last 24 Hours of Lab Results: Laboratory Tests 01/27 07 Chemistry Sodium Pending Potassium Pending Chloride Pending Carbon Dioxide Pending Anion Gap Pending BUN Pending Creatinine Pending BUN/Creatinine Ratio Pending Hematology CBC w Diff Pending WBC Pending RBC Pending Hgb Pending Hct Pending MCV Pending MCH Pending MCHC Pending RDW Pending Plt Count Pending MPV Pending Last 24 Hours of Mateo Results: Urine culture January 24 negative Blood cultures 2 January 24 negative Assessment/Plan ID Impression: Stable, with temperatures and white blood cell count remaining normal, on Meropenem, Day 3 of treatment for possible sepsis of urologic origin, but, with her urine and blood cultures negative, feel that her antibiotics can be discontinued. She does have a history of interstitial cystitis, which could explain her urinary symptoms, and further urologic evaluation is planned as an outpatient. Suggestion: 1. Further urologic workup as an outpatient per Dr. Lynn 2. Discontinue Meropenem and follow off antibiotics
[2018-01-27 08:47] LABS: ABSOLUTE BASOPHIL COUNT 0 /CUMM (0.0-0.2); ABSOLUTE EOSINOPHIL COUNT 0.3 /CUMM (0.0-0.7); ABSOLUTE GRANULOCYTE CT 5.6 /CUMM (1.4-6.5); ABSOLUTE LYMPH COUNT 2.7 /CUMM (1.2-3.4); ABSOLUTE MONOCYTE COUNT 0.9 /CUMM (0.10-0.60); BASOPHIL % 0.5 % (0.0-2.0); EOSINOPHIL % 3.6 % (0-5); HEMATOCRIT 31.3 % (37-47); MEAN CORPUSCULAR HGB 24.6 PG (27.0-31.0); MEAN CORPUSCULAR VOLUME 76.8 FL (81.0-99.0); MEAN PLATELET VOLUME 9.3 FL (7.4-10.4); PLATELET COUNT 192 /CUMM (130-400); RBC DISTRIBUTION WIDTH 24.6 % (11.5-14.5); RED BLOOD CELL CT 4.07 /CUMM (4.20-5.40); WHITE BLOOD CELL COUNT 9.5 /CUMM (4.8-10.8)
[2018-01-27 21:30] VITALS: BP 120/64
[2018-01-28 05:53] VITALS: BP 118/58; BP 120/60
--- NOTE | 2018-01-28 07:15 | PN- Housestaff ---
Mayra Messina MD,Ami 01/28/18 0714: Subjective Follow-up For: Interstitial cystitis Rule out UTI/sepsis Subjective: Patient visited today, was sitting at the bedside comfortably in no acute distress, was alert and oriented. Significant improvement in overall condition. No fever or chills, no shortness of breathing, no chest pain, no other events. WBC count stable, off antibiotics, planned to discharge with outpatient urology follow up. Patient was asking to be discharged. Review of Systems Constitutional: Reports: see HPI. Objective Last 24 Hrs of Vital Signs/I&O Vital Signs Date Time Temp Pulse Resp B/P B/P Pulse O2 O2 Flow FiO2 Mean Ox Delivery Rate 01/28 0856 76 132/72 01/28 0553 97.9 83 20 120/60 93 01/27 2130 98.0 83 18 120/64 92 Room Air Intake & Output 01/28 1600 01/28 0800 01/28 0000 Intake Total 850 Output Total Balance 850 Intake, Oral 850 Number 1 1 Bowel Movements Physical Exam General Appearance: Alert, Oriented X3, Cooperative, No Acute Distress, improved condition, Skin Temp/Moisture Exam: Warm/Dry Sepsis Skin Exam (color): Normal for Ethnicity HEENT: Atraumatic, EOMI Cardiovascular: Normal S1, Normal S2 Lungs: Normal Air Movement Abdomen: Soft, Mild suprapubic tenderness Neurological: Normal Speech Current Medications: Current Medications Sig/Shikha Start time Last Medication Dose Route Stop Time Status Admin Acetaminophen 650 MG Q6P PRN 01/24 1515 AC 01/25 PO 1221 Acetaminophen 1,000 MG Q6P PRN 01/24 1515 AC 01/25 IV 0547 Aspirin 81 MG DAILY 01/25 09 AC 01/28 PO 0853 Atorvastatin Calcium 5 MG 1700 01/24 1700 AC 01/27 PO 1638 Duloxetine HCl 60 MG DAILY 01/25 900 AC 01/28 PO 0853 Enoxaparin Sodium 40 MG DAILY 01/25 900 AC 01/28 SC 0852 Furosemide 40 MG DAILY 01/25 900 AC 01/28 PO 0853 Gabapentin 800 MG TID 01/24 2100 AC 01/28 PO 0853 Insulin Aspart 0 TIDAC 01/25 1200 AC 01/28 SC 0852 Insulin Detemir 70 UNITS DAILY 01/26 09 AC 01/28 SC 0852 Insulin Detemir 45 UNITS QPM 01/25 2100 AC 01/27 SC 210 Lorazepam 0.25 MG Q8P PRN 01/24 1600 AC PO 01/31 1559 Melatonin 6 MG QPM / 2100 AC 01/27 PO 210 Meropenem 1 GM Q12H 01/24 1600 DC 01/27 IV 0406 Metoclopramide HCl 5 MG BID 01/24 2100 AC 01/28 PO 0853 Metoprolol Succinate 100 MG DAILY 01/26 1118 AC 01/28 PO 0856 Mirabegron 25 MG DAILY 01/25 1230 AC 01/28 PO 0852 Nystatin 1 EVANGELINA TID 01/25 1400 AC 01/28 TOP 0856 Oxybutynin Chloride 5 MG BID 01/28 0945 AC PO Assessment/Plan Assessment: Patient is 87 y F with presented to ED with altered mental status and chills PMHx of intersitial cystitis, Type II DM, with diabetic mononeuropathy, HTN, Peripherial vascular disease, generalized anxiety disorder, gerneralized edema, hyperlipidemia, iron deficiency anemia, urge incontinence, IBS with diarrhea, major depressive disorder, anxiety disorder, 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 Doxey) and ESBL (treated with gentamicin) VS, Ph Ex at admission: Tmax 100, BP 105/73, saturating with 2l o2 supplement Labs at admission: Hgb 10.1, MCV 76, WBC 10.8, Gran 80%, creatinine 1, BUN 36, UA, cloudy, leukocyte esterase large, RBC few, WBC packed, bacteria rare Imagings at admission: CXR: No acute intrathoracic disease. Head CT: 1. There are no acute bleeds or territorial infarcts. 2. There are progressive changes from diffuse volume loss and chronic microvascular ischemic disease. Patient was admitted to telemetry floor for management of following conditions: Altered mental status Secondary to UTI (concern of SIRS and Sepsis)/ metabolic due to hypo-glycemia Patient's mental condition improved according to family. most likely in setting of low blood sugar. Blood sugars are stable in 200s in home dose of insuline. Cutlures remained negative, discontinued meropenem -stable to be discharged - Fu cath removed, patient was incontinance in baseline, restarted home dose of oxybutinin. - ambulation in baseline Chronic medical conditions -We continued home medication DVT prophylaxis, mechanical and pharmacological Diabetic diet FC Patient is stable to be discharged. Patient Problem List: 1. Interstitial cystitis 2. Altered mental status 3. Hypoglycemia Pain Ratin Pain Location: None Pain Goal: Pain 4 or less Pain Plan: Continue current plan Tomorrow's Labs & Rationales: None Indira HAMPTON,Valery 01/28/18 1228: Attending MD Review Statement Attending Statement Attending MD Statement: examined this patient, discuss w/resident/PA/MECHANICAL EQUIPMENT TEST ENGINEER, agreed w/resident/PA/MECHANICAL EQUIPMENT TEST ENGINEER, reviewed EMR data (avail), discussed with nursing, discussed with case mgmt, amended to note Attending Assessment/Plan: Patient seen and examined. Resting comfortably not in any acute distress. Culture results have been negative on antibiotic therapy or help. She has remained afebrile hemodynamically stable. She complains of the lower abdominal discomfort on and off. The symptoms have appeared to be chronic. She does not appear to have a urinary tract infection. Symptoms are likely brought on by her chronic interstitial cystitis. She is to follow-up with her urology service as an outpatient for further recommendations. At this point she is medically stable to be discharged back to her [facility] facility.
--- NOTE | 2018-01-28 08:02 | Patient Discharge Instructions ---
Discharge Instructions General Discharge Information You were seen/treated for: Rule out UTI Intiristial cystitis Watch for these problems: Severe weakness, fever, chills, shortness of breathing, chest pain, change in urine color, or wrosening of any other symptoms Special Instructions: Please follow with your PCP within one week fo discharge. Please follow with your urologist within 1-2 weeks of discharge. If your urologist was not availabe in [facility] you can follow with Dr Lynn as instructed. Diet Continue normal diet: No Recommended Diet: Diabetic Activity Full Activity/No Limits: No Activity Self Limited: Yes Acute Coronary Syndrome Inclusion Criteria At DC or during hospital stay patient has or had the following: ACS DIAGNOSIS No Discharge Core Measures Meds if any: Prescribed or Continued at Discharge Meds if any: NOT Prescribed or Continued at Discharge Congestive Heart Failure Inclusion Criteria At DC or during hospital stay patient has or had the following: CHF DIAGNOSIS No Discharge Core Measures Meds if any: Prescribed or Continued at Discharge Meds if any: NOT Prescribed or Continued at Discharge Cerebrovascular accident Inclusion Criteria At DC or during hospital stay patient has or had the following: CVA/TIA Diagnosis No Discharge Core Measures Meds if any: Prescribed or Continued at Discharge Meds if any: NOT Prescribed or Continued at Discharge Venous thromboembolism Inclusion Criteria VTE Diagnosis No VTE Type NONE VTE Confirmed by (Test) NONE Discharge Core Measures - Per Current guidelines, there needs to be overlap - treatment for the first 5 days of Warfarin therapy. - If discharged on Warfarin prior to 5 days of - overlap therapy, the patient will need to be - assessed for post discharge needs including - *Post discharge parental anticoagulation - *Warfarin and/or parental anticoagulation education - *Follow up date to check INR post discharge At least 5 days overlap therapy as Inpatient No Meds if any: Prescribed or Continued at Discharge Note: Overlap Therapy is Warfarin and Anticoagulant Meds if any: NOT Prescribed or Continued at Discharge
[2018-01-28 16:04] VITALS: BP 132/72
== END 2018-01-28 16:20 | DRG 871 ==
LOC: ERH 10:01 → ERHI 13:31 → 2NB 13:31 → ENRESERV 14:08 → ENTRNSPT 16:05 → EDTRNSPT 16:11 → EDTRNSPTSTS 16:11 → 2NB 16:23 → CMPTRNSPT 16:30 → 2NB 17:38 → ENPENDDIS 01-28 11:58 → 2NB 01-28 16:20
PROVIDERS: Emergency Medicine; Radiology Vascular & Interventional Radiology; Student in an Organized Health Care Education/Training Program
DX: A41.9 Sepsis, unspecified organism (principal); G93.41 Metabolic encephalopathy; E11.41 Type 2 diabetes mellitus with diabetic mononeuropathy; E11.51 Type 2 diabetes mellitus with diabetic peripheral angiopathy without gangrene; N39.0 Urinary tract infection, site not specified; F32.9 Major depressive disorder, single episode, unspecified; E78.5 Hyperlipidemia, unspecified; D50.9 Iron deficiency anemia, unspecified; Z79.4 Long term (current) use of insulin; N30.20 Other chronic cystitis without hematuria; I10 Essential (primary) hypertension; K21.9 Gastro-esophageal reflux disease without esophagitis; K44.9 Diaphragmatic hernia without obstruction or gangrene; Z87.440 Personal history of urinary (tract) infections; F41.9 Anxiety disorder, unspecified; R60.9 Edema, unspecified; N39.41 Urge incontinence; K58.0 Irritable bowel syndrome with diarrhea; L40.9 Psoriasis, unspecified; Z79.82 Long term (current) use of aspirin; Z79.84 Long term (current) use of oral hypoglycemic drugs
CPT/HCPCS: 2NBP; 36592; 71045; 74176; 81001; 82436; 87040; 87086; 93005; 93010; 96360; 97110-GO; 97161-GP; 97530-GO; 99291; J0131; J1650; J2185; J3490; J7508